=== PATIENT | female | born 1945 | race Caucasian/White ===

== ENCOUNTER 2021-01-15 19:27 | Inpatient (IN) | payer MEDICARE ==
[2021-01-15] MEDS ORDERED: Furosemide 100mg/10 ml Vial ONE (19:41)
[2021-01-15] MEDS ORDERED: NITRO-BID 2% UD PACKETS ONE (19:44)
[2021-01-15] MEDS ORDERED: Nitrostat 0.4 MG (ED) SL ONE ×2 (19:44→20:00)
[2021-01-15] MEDS ORDERED: solu-MEDROL ONE (19:45)
[2021-01-15] MEDS ORDERED: DUONEB 0.5-3 MG/3 ml Neb IH ONE ×2 (19:46→20:01)
[2021-01-15] MEDS ORDERED: Zofran 4 MG/2 ML VIAL ONE (19:47)
[2021-01-15] MEDS ORDERED: HYDROCODONE-ACETAMIN 2.5-108/5 ML SOLUTION ONE (19:57)
[2021-01-15] MEDS ORDERED: solu-MEDROL 125 MG, Sterile H2O 10 ml 2 ML IV ONE ×2 (19:59)
[2021-01-15] MEDS ORDERED: Ntg 0.2MG/Ml in D5W GLASS*** 250 ML IV ONE (20:00)
[2021-01-15] MEDS ORDERED: NITRO-BID 2% UD PACKETS TOP ONE (20:00)
[2021-01-15] MEDS ORDERED: Furosemide 100mg/10 ml Vial IV ONE (20:01)
[2021-01-15] MEDS ORDERED: Zofran 4 MG/2 ML VIAL IV ONE (20:02)
[2021-01-15] MEDS ORDERED: Lasix 40 MG/4 ML ONE (20:03)
[2021-01-15] MEDS ORDERED: HYDROCODONE-ACETAMIN 2.5-108/5 ML SOLUTION PO STA (20:14)
[2021-01-15 20:27] LABS: Hematocrit 54.1 % (35-47); Hemoglobin 17.4 gm/dl (12.0-16.0); Mean Corpuscular Hemoglobin 28.6 pg (26-32); Mean Corpuscular Hgb Concent. 32.2 g/dl (32-36); Mean Platelet Volume 10.5 fl (7.5-11.0); Platelet Count 351 K/mm3 (150-450); Red Blood Count 6.08 M/mm3 (4.1-5.4)
[2021-01-15 20:33] LABS: ALBUMIN 4.5 g/dL (3.5-5.0); ALKALINE PHOSPHATASE 198 U/L (38-126); ANION GAP 21.5 MEQ/L (5-15); BLOOD UREA NITROGEN 18 mg/dL (7-17); CHLORIDE 94 mmol/L (98-107); Calcium 9.6 mg/dL (8.4-10.2); Carbon Dioxide 22 mmol/L (22-30); Creatinine 1 0.76 mg/dL (0.52-1.04); EST GLOMERULAR FILTRATION RATE > 60.0 ML/MIN; Potassium 3.9 mmol/L (3.5-5.1); SGOT/AST 46 U/L (14-36); SGPT/ALT 21 U/L (0-35); SODIUM 134 mmol/L (137-145); Total Protein 8.4 g/dL (6.3-8.2)
[2021-01-15 20:35] LABS: A-aADO2 583; ABG HEMOGLOBIN 17.2; ABG POTASSIUM 3.7 (3.5-5.1); ARTERIAL BLD GAS O2 SATURATION 81.2 % (95-100); ARTERIAL BLOOD GAS BASE EXCESS -12.1 (-2.0-2.0); ARTERIAL BLOOD GAS FIO2 100 %; ARTERIAL BLOOD GAS PCO2 58 mmHg (35-45); ARTERIAL BLOOD GAS PO2 58 mmHg (75-100); CARBOXYHEMOGLOBIN 1.3 % THgb (0.0-6.9); HGB O2 SAT 79.7 g/dF (94-100); Lactic Acid 8.3 (0.4-2.0); Methhemoglobin 0.6 % (1.4-1.5)
[2021-01-15 20:36] LABS: ABG SITE LEFT BRACHIAL
[2021-01-15 20:46] LABS: Glucose 518 mg/dL (74-106)
[2021-01-15] MEDS ORDERED: Ntg 0.2MG/Ml in D5W GLASS*** 250 ML IV PRN (21:05)
[2021-01-15] MEDS ORDERED: BABY ASPIRIN 81 MG CHEW PO ONE (21:23)
[2021-01-15 21:25] LABS: Appearance CLEAR (CLEAR); Bilirubin NEGATIVE (NEGATIVE); Blood SMALL Ery/ul (0-5); Glucose >=500 mg/dL (NEGATIVE); Hyaline Casts 0-2 /LPF (0-2); Ketones NEGATIVE (NEGATIVE); Leukocyte Esterase NEGATIVE (NEGATIVE); Nitrite NEGATIVE (NEGATIVE); Protein,Urine Dip 30 (Negative); Specific Gravity 1.007 (1.005-1.025); Urobilinogen NEGATIVE mg/dL (0-1)
[2021-01-15] MEDS ORDERED: HUMULIN R IV ONE (21:25)
[2021-01-15] MEDS ORDERED: BABY ASPIRIN 81 MG CHEW ONE (21:25)
[2021-01-15] MEDS ORDERED: K-LYTE 25 MEQ PO ONE (21:26)
[2021-01-15] MEDS ORDERED: K-LYTE 25 MEQ ONE (21:35)
[2021-01-15] MEDS ORDERED: HUMULIN R ONE ×2 (21:35→21:49)
--- NOTE | 2021-01-15 21:42 | ERPHSYRPT ---
- History of Present Illness Time Seen by Provider: 01/15/21 19:29 Source: patient Exam Limitations: clinical condition Patient Subjective Stated Complaint: pt c/o shortness of breath and chest pain. poor historian at this time. states she was recently diagnosed with heart problems, unsure what kind, and sees dr rousseau. Triage Nursing Assessment: pt back to room per wheelchair, transfers to stretcher with assist of 1. pt very anxious, short of breath, yelling. unable to answer medical hx questions at this time. frequent cough with pink frothy sputum. skin dusky and diaphoretic. o2 on room air initially 100% and decreased to 68 before o2 applied per nrb. Physician History: 75 years old female with history of hypertension, hyperlipidemia, diabetes mellitus, questionable history of congestive heart failure presented in the ER with sudden onset shortness of breath after she heard about her granddaughter being involved in MVA. Patient is in severe distress on presentation with oxygen saturation in 60s and having difficulty talking. Complaining of chest tightness pressure and pain with worsening cough productive of clear to yellow sputum. Patient is having loud coarse crackles all over. No fever or chills reported. She is placed on nonrebreather followed by BiPAP. Timing/Duration: hour(s) (0.5), constant, sudden, worse Activities at Onset: rest Severity of Dyspnea-Max: severe Severity of Dyspnea-Current: severe Possible Cause: unknown cause Modifying Factors: Worsens With: activity, coughing, exertion Associated Symptoms: chest pain/discomfort, heart racing, productive cough, tightness, No fever Allergies/Adverse Reactions: fentanyl Allergy (Unknown, Verified 01/16/21 00:00) glycopyrrolate [From Robinul] Allergy (Unknown, Verified 01/16/21 00:00) lidocaine Allergy (Unknown, Verified 01/16/21 00:00) propofol Allergy (Unknown, Verified 01/16/21 00:00) rocuronium bromide [From Zemuron] Allergy (Unknown, Verified 01/16/21 00:00) Antihistamines - Alkylamine Adverse Reaction (Unknown, Verified 01/16/21 00:00) metoprolol Adverse Reaction (Unknown, Verified 01/16/21 00:00) Home Medications: Cholecalciferol (Vitamin D3) [Vitamin D] 0 mg PO DAILY 10/16/13 [History] Cyanocobalamin (Vitamin B-12) [Vitamin B-12] 0 mcg PO DAILY 10/16/13 [History] Insulin Glargine,Hum.rec.anlog [Lantus] 30 unit SQ BID 10/16/13 [History] Insulin Lispro [Humalog] 20 unit SQ BID 10/16/13 [History] Vitamin E 0 unit PO DAILY 10/16/13 [History] Carvedilol 3.125 mg [Coreg 3.125 MG] 3.125 mg PO BID 01/16/21 [History] Cinnamon Bark [Cinnamon] 1 tab PO QAM 01/16/21 [History] Furosemide [Lasix] 20 mg PO BID 01/16/21 [History] Losartan Potassium 25 mg PO DAILY 01/16/21 [History] Potassium Chloride 10 meq PO HS 01/16/21 [History] Vit A/Vit C/Vit E/Zinc/Copper [Preservision Areds Tablet] 2 tab PO QAM 01/16/21 [History] Hx Tetanus, Diphtheria Vaccination/Date Given: No Hx Influenza Vaccination/Date Given: No Hx Pneumococcal Vaccination/Date Given: Yes Immunizations Up to Date: No Travel Risk - International Travel Have you traveled outside of the country in past 3 weeks: No - Coronavirus Screening Are you exhibiting any of the following symptoms?: No Close contact with a COVID-19 positive Pt in past 14-21 Days: No - Vaccine Status Have you recieved a Covid-19 vaccination: No - Review of Systems All Other Systems: Unable due to condition - Past Medical History Pertinent Past Medical History: Yes Cardiac History: High Cholesterol, Other Endocrine Medical History: Diabetes Type II Other Medical History: breast cax2. pt unable to answer questions about medical hx at this time - Past Surgical History Past Surgical History: Yes Gastrointestinal: Cholecystectomy Musculoskeletal: Orthopedic Surgery Female Surgical History: Hysterectomy, Mastectomy Other Surgical History: surgical hx obtained from chart - Social History Smoking Status: Never smoker Exposure to second hand smoke: No Drug Use: none Patient Lives Alone: No - Nursing Vital Signs Nursing Vital Signs: Initial Vital Signs Blood Pressure 169/139 01/15/21 19:45 O2 Sat by Pulse Oximetry 89 L 01/15/21 19:45 Pain Scale Pain Intensity 0 - Physical Exam General Appearance: severe distress, alert, anxiety Eye Exam: PERRL/EOMI, eyes nml inspection Ears, Nose, Throat Exam: pharyngeal erythema Neck Exam: normal inspection, non-tender, supple, full range of motion Respiratory Exam: respiratory distress, diminished breath sounds, accessory muscle use, crackles/rales, rhonchi, wheezing Cardiovascular/Chest Exam: normal heart sounds, tachycardia Abdominal/Gastrointestinal Exam: soft, No tenderness Extremity Exam: non-tender, normal range of motion Neurologic Exam: alert, oriented x 3, 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 helper II-XII nml as tested Skin Exam: normal color SpO2 Interpretation: O2 applied SpO2: 94 O2 Delivery: Non-rebreather - Course EKG Interpreted by Me: RATE ([id number]), Sinus Tach, NORMAL AXIS, prolonged QT interval, Non-specific ST Changes Ordered Tests: Medication Summary Discontinued Medications Generic Name Dose Route Start Last Admin Trade Name Freq PRN Reason Stop Dose Admin Acetaminophen 650 mg 01/16/21 00:26 Acetaminophen 325 Mg Tablet PO 02/15/21 00:25 Q4H PRN PRN PAIN AND/OR FEVER Hydrocodone Bitart/Acetaminophen Confirm 01/15/21 19:57 Hydrocodone/Acetaminophen 5 Ml Udcup Administered 01/15/21 19:58 Dose 10 ml .ROUTE .STK-MED ONE Hydrocodone Bitart/Acetaminophen 10 ml 01/15/21 20:14 01/15/21 20:16 Hydrocodone/Acetaminophen 5 Ml Udcup PO 01/15/21 20:15 10 ml STAT STA Administration Albuterol/Ipratropium Confirm 01/15/21 19:46 Ipratropium/Albuterol Sulfate 3 Ml Ampul.Neb Administered 01/15/21 19:47 Dose 3 ml IH .STK-MED ONE Albuterol/Ipratropium 3 ml 01/15/21 20:01 01/15/21 19:45 Ipratropium/Albuterol Sulfate 3 Ml Ampul.Neb IH 01/15/21 20:02 3 ml STAT ONE Administration Albuterol/Ipratropium 3 ml 01/16/21 01:00 01/16/21 12:03 Ipratropium/Albuterol Sulfate 3 Ml Ampul.Neb IH 02/15/21 00:59 3 ml Q6HRT MADAY Administration Aspirin 324 mg 01/15/21 21:23 01/15/21 21:32 Aspirin 81 Mg Tab.Chew PO 01/15/21 21:24 324 mg STAT ONE Administration Aspirin Confirm 01/15/21 21:25 Aspirin 81 Mg Tab.Chew Administered 01/15/21 21:26 Dose 324 mg .ROUTE .STK-MED ONE Carvedilol 3.125 mg 01/16/21 12:00 01/16/21 12:40 Carvedilol 3.125 Mg Tablet PO 02/15/21 11:59 3.125 mg BID MADAY Administration Methylprednisolone Sodium 0 mg 01/15/21 19:59 01/15/21 19:50 Succinate 125 mg/ Sterile IV 01/15/21 20:00 125 mg Water 2 ml STAT ONE Administration Dextrose 25 ml 01/16/21 09:06 Dextrose 50%-Water 50 Ml Abboject IV 02/15/21 09:05 PRN PRN HYPOGLYCEMIA Enoxaparin Sodium 40 mg 01/16/21 10:00 01/16/21 12:38 Enoxaparin Sodium 40 Mg/0.4 Ml Syringe SQ 02/15/21 09:59 40 mg DAILY MADAY Administration Furosemide Confirm 01/15/21 19:41 Furosemide 100 Mg/10 Ml Vial Administered 01/15/21 19:42 Dose 100 mg .ROUTE .STK-MED ONE Furosemide 60 mg 01/15/21 20:01 01/15/21 19:50 Furosemide 100 Mg/10 Ml Vial IV 01/15/21 20:02 60 mg STAT ONE Administration Furosemide Confirm 01/15/21 20:03 Furosemide 40 Mg/4 Ml Vial Administered 01/15/21 20:04 Dose 40 mg .ROUTE .STK-MED ONE Furosemide 20 mg 01/16/21 21:05 01/15/21 21:27 Furosemide 20 Mg/Vial IV 01/16/21 21:06 20 mg STAT ONE Administration Glucagon 1 mg 01/16/21 09:06 Glucagon 1 Mg/Vial Vial IM 02/15/21 09:05 PRN PRN HYPOGLYCEMIA Glucose 15 gm 01/16/21 09:06 Dextrose 15 Gm Gel PO 02/15/21 09:05 PRN PRN HYPOGLYCEMIA Nitroglycerin/Dextrose Confirm 01/15/21 20:00 Ntg 0.2mg/Ml In D5w Glass Administered 01/15/21 20:01 Dose 250 mls @ ud IV .STK-MED ONE Nitroglycerin/Dextrose 250 mls @ 1.5 mls/hr 01/15/21 21:05 01/16/21 04:06 Ntg 0.2mg/Ml In D5w Glass IV 02/14/21 21:04 16.67 mcg/min .Q24H PRN 5 mls/hr CHEST PAIN Titration Protocol 5 MCG/MIN Magnesium Sulfate/Dextrose 100 mls @ 100 mls/hr 01/15/21 21:45 01/15/21 22:43 Magnesium 1 Gm / 100 Ml D5w IV 01/15/21 23:44 100 mls/hr Q1H MADAY Administration Sodium Chloride Confirm 01/15/21 21:49 Sodium Chloride 0.9% 100 Ml Bag Administered 01/15/21 21:50 Dose 100 mls @ ud .ROUTE .STK-MED ONE Insulin Human Regular 100 unit 100 mls @ 7.98 mls/hr 01/15/21 21:59 / Sodium Chloride IV 02/14/21 21:58 .[id number] PRN DKA/HYPERGLYCEMIA Protocol 0.1 UNIT/KG/HR Insulin Human Regular 100 unit 100 mls @ 5 mls/hr 01/15/21 22:02 01/16/21 08:19 / Sodium Chloride IV 02/14/21 21:58 5 unit/hr .Q20H PRN 5 mls/hr DKA/HYPERGLYCEMIA Infusion 5 UNIT/HR Potassium Chloride/Sodium Chloride 1,000 mls @ 100 mls/hr 01/16/21 00:26 Sodium Chloride 0.9% W/ 20 Meq Kcl/Liter IV 02/15/21 00:25 .Q10H MADAY Insulin Human Lispro 0 unit 01/16/21 10:27 01/16/21 17:42 Insulin Lispro 1 Unit SQ 02/15/21 10:26 7 unit UD PRN Administration HYPERGLYCEMIA Insulin Human Regular 10 unit 01/15/21 21:25 01/15/21 21:36 Insulin Regular, Human 1 Unit IV 01/15/21 21:26 10 unit STAT ONE Administration Insulin Human Regular Confirm 01/15/21 21:35 Insulin Regular, Human 1 Unit Administered 01/15/21 21:36 Dose 10 unit .ROUTE .STK-MED ONE Insulin Human Regular Confirm 01/15/21 21:49 Insulin Regular, Human 1 Unit Administered 01/15/21 21:50 Dose 1 unit .ROUTE .STK-MED ONE Losartan Potassium 25 mg 01/16/21 12:00 01/16/21 12:40 Losartan Potassium 50 Mg Tablet PO 02/15/21 11:59 Not Given DAILY MADAY Methylprednisolone Sodium Succinate Confirm 01/15/21 19:45 Methylprednis Sod Succ 125 Mg/2 Ml Vial Administered 01/15/21 19:46 Dose 125 mg .ROUTE .STK-MED ONE Multivitamins/Minerals 2 tab 01/16/21 12:00 01/16/21 12:40 Beta-Carotene(A) W-C And E/Min 1 Tab Tablet PO 02/15/21 11:59 2 tab QAM MADAY Administration Nitroglycerin Confirm 01/15/21 19:44 Nitroglycerin 1 Gm Packet Administered 01/15/21 19:45 Dose 1 gm .ROUTE .STK-MED ONE Nitroglycerin Confirm 01/15/21 19:44 Nitroglycerin 0.4 Mg (Ed) 0.4 Mg Tab.Subl Administered 01/15/21 19:45 Dose 0.4 mg SL .STK-MED ONE Nitroglycerin 0.4 mg 01/15/21 20:00 01/15/21 19:49 Nitroglycerin 0.4 Mg (Ed) 0.4 Mg Tab.Subl SL 01/15/21 20:01 0.4 mg STAT ONE Administration Nitroglycerin 1 gm 01/15/21 20:00 01/15/21 19:55 Nitroglycerin 1 Gm Packet TOP 01/15/21 20:01 1 gm STAT ONE Administration Ondansetron HCl Confirm 01/15/21 19:47 Ondansetron Hcl 4 Mg/2 Ml Vial Administered 01/15/21 19:48 Dose 4 mg .ROUTE .STK-MED ONE Ondansetron HCl 4 mg 01/15/21 20:02 01/15/21 19:50 Ondansetron Hcl 4 Mg/2 Ml Vial IV 01/15/21 20:03 4 mg STAT ONE Administration Pantoprazole Sodium 40 mg 01/16/21 10:00 01/16/21 11:32 Pantoprazole 40 Mg Vial IV 02/15/21 09:59 40 mg Q24H10 MADAY Administration Potassium Bicarbonate 50 meq 01/15/21 21:26 01/15/21 21:37 Potassium Bicarbonate 25 Meq Tab PO 01/15/21 21:27 50 meq STAT ONE Administration Potassium Bicarbonate Confirm 01/15/21 21:35 Potassium Bicarbonate 25 Meq Tab Administered 01/15/21 21:36 Dose 50 meq .ROUTE .STK-MED ONE Potassium Chloride 10 meq 01/16/21 22:00 Potassium Chloride 10 Meq Tablet PO 02/15/21 21:59 HS [facility] Lab/Rad Data: Laboratory Result Diagrams 01/15/21 20:23 01/15/21 20:23 Laboratory Results 01/16/21 01/15/21 01/15/21 Range/Units 00:09 23:40 23:37 WBC (4.0-10.5) K/mm3 RBC (4.1-5.4) M/mm3 Hgb (12.0-16.0) gm/dl Hct (35-47) % MCV (78-100) fl MCH (26-32) pg MCHC (32-36) g/dl RDW (11.5-14.0) % Plt Count (150-450) K/mm3 MPV (7.5-11.0) fl Segmented Neutrophils (36.0-66.0) % Lymphocytes (Manual) (24-44) % Monocytes (Manual) (0.0-12.0) % Eosinophils (Manual) (0.00-3.0) % Platelet Estimate (NORMAL) RBC Morphology Puncture Site pCO2 (35-45) mmHg pO2 (75-100) mmHg Base Excess (-2.0-2.0) O2 Saturation (94-100) g/dF ABG pH (7.35-7.45) ABG HCO3 (22-28) ABG O2 Sat (Measured) (95-100) % Deondre Test A-a Gradient a/A Ratio Hemoglobin Carboxyhemoglobin (0.0-6.9) % THgb Methemoglobin (1.4-1.5) % Potassium (3.5-5.1) Temperature C POC O2 Flow Rate % Sodium (137-145) mmol/L Chloride (98-107) mmol/L Carbon Dioxide (22-30) mmol/L Anion Gap (5-15) MEQ/L BUN (7-17) mg/dL Creatinine (0.52-1.04) mg/dL Estimated GFR ML/MIN Glucose (74-106) mg/dL POC Glucometer 360 H (74 to 106) mg/dL Lactic Acid 3.6 H (0.4-2.0) Calcium (8.4-10.2) mg/dL Total Bilirubin (0.2-1.3) mg/dL AST (14-36) U/L ALT (0-35) U/L Alkaline Phosphatase (38-126) U/L Troponin I 0.404 H* (0.000-0.034) ng/mL NT-Pro-B Natriuret Pep (0-1800) pg/mL Serum Total Protein (6.3-8.2) g/dL Albumin (3.5-5.0) g/dL Procalcitonin (0.030-0.080) ng/mL Urine Color (YELLOW) Urine Appearance (CLEAR) Urine pH (5-6) Ur Specific [place] (1.005-1.025) Urine Protein (Negative) Urine Ketones (NEGATIVE) Urine Blood (0-5) Ashish/ul Urine Nitrite (NEGATIVE) Urine Bilirubin (NEGATIVE) Urine Urobilinogen (0-1) mg/dL Ur Leukocyte Esterase (NEGATIVE) Urine WBC (Auto) (0-5) /HPF Urine RBC (Auto) (0-2) /HPF U Hyaline Cast (Auto) (0-2) /LPF U Epithel Cells (Auto) (FEW) /HPF Urine Bacteria (Auto) (NEGATIVE) /HPF Urine Culture Reflexed (NO) Urine Glucose (NEGATIVE) mg/dL Influenza Type A Ag (NEGATIVE) Influenza Type B Ag (NEGATIVE) RSV (PCR) (Negative) SARS-CoV-2 (PCR) (NEGATIVE) 01/15/21 01/15/21 01/15/21 Range/Units 22:42 22:25 20:47 WBC (4.0-10.5) K/mm3 RBC (4.1-5.4) M/mm3 Hgb (12.0-16.0) gm/dl Hct (35-47) % MCV (78-100) fl MCH (26-32) pg MCHC (32-36) g/dl RDW (11.5-14.0) % Plt Count (150-450) K/mm3 MPV (7.5-11.0) fl Segmented Neutrophils (36.0-66.0) % Lymphocytes (Manual) (24-44) % Monocytes (Manual) (0.0-12.0) % Eosinophils (Manual) (0.00-3.0) % Platelet Estimate (NORMAL) RBC Morphology Puncture Site pCO2 (35-45) mmHg pO2 (75-100) mmHg Base Excess (-2.0-2.0) O2 Saturation (94-100) g/dF ABG pH (7.35-7.45) ABG HCO3 (22-28) ABG O2 Sat (Measured) (95-100) % Deondre Test A-a Gradient a/A Ratio Hemoglobin Carboxyhemoglobin (0.0-6.9) % THgb Methemoglobin (1.4-1.5) % Potassium (3.5-5.1) Temperature C POC O2 Flow Rate % Sodium (137-145) mmol/L Chloride (98-107) mmol/L Carbon Dioxide (22-30) mmol/L Anion Gap (5-15) MEQ/L BUN (7-17) mg/dL Creatinine (0.52-1.04) mg/dL Estimated GFR ML/MIN Glucose (74-106) mg/dL POC Glucometer 496 H (74 to 106) mg/dL Lactic Acid (0.4-2.0) Calcium (8.4-10.2) mg/dL Total Bilirubin (0.2-1.3) mg/dL AST (14-36) U/L ALT (0-35) U/L Alkaline Phosphatase (38-126) U/L Troponin I (0.000-0.034) ng/mL NT-Pro-B Natriuret Pep (0-1800) pg/mL Serum Total Protein (6.3-8.2) g/dL Albumin (3.5-5.0) g/dL Procalcitonin (0.030-0.080) ng/mL Urine Color STRAW (YELLOW) Urine Appearance CLEAR (CLEAR) Urine pH 5.0 (5-6) Ur Specific [place] 1.007 (1.005-1.025) Urine Protein 30 (Negative) Urine Ketones NEGATIVE (NEGATIVE) Urine Blood SMALL (0-5) Ashish/ul Urine Nitrite NEGATIVE (NEGATIVE) Urine Bilirubin NEGATIVE (NEGATIVE) Urine Urobilinogen NEGATIVE (0-1) mg/dL Ur Leukocyte Esterase NEGATIVE (NEGATIVE) Urine WBC (Auto) NONE (0-5) /HPF Urine RBC (Auto) 3-5 (0-2) /HPF U Hyaline Cast (Auto) 0-2 (0-2) /LPF U Epithel Cells (Auto) NONE (FEW) /HPF Urine Bacteria (Auto) NONE (NEGATIVE) /HPF Urine Culture Reflexed ORDERED SEPARATELY (NO) Urine Glucose >=500 (NEGATIVE) mg/dL Influenza Type A Ag NEGATIVE (NEGATIVE) Influenza Type B Ag NEGATIVE (NEGATIVE) RSV (PCR) NEGATIVE (Negative) SARS-CoV-2 (PCR) NEGATIVE (NEGATIVE) 01/15/21 01/15/21 01/15/21 Range/Units 20:23 20:23 20:23 WBC (4.0-10.5) K/mm3 RBC (4.1-5.4) M/mm3 Hgb (12.0-16.0) gm/dl Hct (35-47) % MCV (78-100) fl MCH (26-32) pg MCHC (32-36) g/dl RDW (11.5-14.0) % Plt Count (150-450) K/mm3 MPV (7.5-11.0) fl Segmented Neutrophils (36.0-66.0) % Lymphocytes (Manual) (24-44) % Monocytes (Manual) (0.0-12.0) % Eosinophils (Manual) (0.00-3.0) % Platelet Estimate (NORMAL) RBC Morphology Puncture Site pCO2 (35-45) mmHg pO2 (75-100) mmHg Base Excess (-2.0-2.0) O2 Saturation (94-100) g/dF ABG pH (7.35-7.45) ABG HCO3 (22-28) ABG O2 Sat (Measured) (95-100) % Deondre Test A-a Gradient a/A Ratio Hemoglobin Carboxyhemoglobin (0.0-6.9) % THgb Methemoglobin (1.4-1.5) % Potassium (3.5-5.1) Temperature C POC O2 Flow Rate % Sodium (137-145) mmol/L Chloride (98-107) mmol/L Carbon Dioxide (22-30) mmol/L Anion Gap (5-15) MEQ/L BUN (7-17) mg/dL Creatinine (0.52-1.04) mg/dL Estimated GFR ML/MIN Glucose (74-106) mg/dL POC Glucometer (74 to 106) mg/dL Lactic Acid (0.4-2.0) Calcium (8.4-10.2) mg/dL Total Bilirubin (0.2-1.3) mg/dL AST (14-36) U/L ALT (0-35) U/L Alkaline Phosphatase (38-126) U/L Troponin I 0.104 H* (0.000-0.034) ng/mL NT-Pro-B Natriuret Pep 1610 (0-1800) pg/mL Serum Total Protein (6.3-8.2) g/dL Albumin (3.5-5.0) g/dL Procalcitonin 0.060 (0.030-0.080) ng/mL Urine Color (YELLOW) Urine Appearance (CLEAR) Urine pH (5-6) Ur Specific [place] (1.005-1.025) Urine Protein (Negative) Urine Ketones (NEGATIVE) Urine Blood (0-5) Ashish/ul Urine Nitrite (NEGATIVE) Urine Bilirubin (NEGATIVE) Urine Urobilinogen (0-1) mg/dL Ur Leukocyte Esterase (NEGATIVE) Urine WBC (Auto) (0-5) /HPF Urine RBC (Auto) (0-2) /HPF U Hyaline Cast (Auto) (0-2) /LPF U Epithel Cells (Auto) (FEW) /HPF Urine Bacteria (Auto) (NEGATIVE) /HPF Urine Culture Reflexed (NO) Urine Glucose (NEGATIVE) mg/dL Influenza Type A Ag (NEGATIVE) Influenza Type B Ag (NEGATIVE) RSV (PCR) (Negative) SARS-CoV-2 (PCR) (NEGATIVE) 01/15/21 01/15/21 01/15/21 Range/Units 20:23 20:23 20:11 WBC 14.0 H (4.0-10.5) K/mm3 RBC 6.08 H (4.1-5.4) M/mm3 Hgb 17.4 H (12.0-16.0) gm/dl Hct 54.1 H (35-47) % MCV 89.0 (78-100) fl MCH 28.6 (26-32) pg MCHC 32.2 (32-36) g/dl RDW 13.0 (11.5-14.0) % Plt Count 351 (150-450) K/mm3 MPV 10.5 (7.5-11.0) fl Segmented Neutrophils 43 (36.0-66.0) % Lymphocytes (Manual) 53 H (24-44) % Monocytes (Manual) 1 (0.0-12.0) % Eosinophils (Manual) 3 (0.00-3.0) % Platelet Estimate NORMAL (NORMAL) RBC Morphology NORMAL Puncture Site LEFT BRACHIAL pCO2 58 H (35-45) mmHg pO2 58 L (75-100) mmHg Base Excess -12.1 L (-2.0-2.0) O2 Saturation 79.7 L (94-100) g/dF ABG pH 7.10 L* (7.35-7.45) ABG HCO3 18.0 L (22-28) ABG O2 Sat (Measured) 81.2 L (95-100) % Deondre Test NOT APPLICABLE A-a Gradient 583 a/A Ratio 0.09 Hemoglobin 17.2 Carboxyhemoglobin 1.3 (0.0-6.9) % THgb Methemoglobin 0.6 L (1.4-1.5) % Potassium 3.9 3.7 (3.5-5.1) Temperature 37.0 C POC O2 Flow Rate 100 % Sodium 134 L (137-145) mmol/L Chloride 94 L (98-107) mmol/L Carbon Dioxide 22 (22-30) mmol/L Anion Gap 21.5 H (5-15) MEQ/L BUN 18 H (7-17) mg/dL Creatinine 0.76 (0.52-1.04) mg/dL Estimated GFR > 60.0 ML/MIN Glucose 518 H* (74-106) mg/dL POC Glucometer (74 to 106) mg/dL Lactic Acid 8.3 H (0.4-2.0) Calcium 9.6 (8.4-10.2) mg/dL Total Bilirubin 0.60 (0.2-1.3) mg/dL AST 46 H (14-36) U/L ALT 21 (0-35) U/L Alkaline Phosphatase 198 H (38-126) U/L Troponin I (0.000-0.034) ng/mL NT-Pro-B Natriuret Pep (0-1800) pg/mL Serum Total Protein 8.4 H (6.3-8.2) g/dL Albumin 4.5 (3.5-5.0) g/dL Procalcitonin (0.030-0.080) ng/mL Urine Color (YELLOW) Urine Appearance (CLEAR) Urine pH (5-6) Ur Specific [place] (1.005-1.025) Urine Protein (Negative) Urine Ketones (NEGATIVE) Urine Blood (0-5) Ashish/ul Urine Nitrite (NEGATIVE) Urine Bilirubin (NEGATIVE) Urine Urobilinogen (0-1) mg/dL Ur Leukocyte Esterase (NEGATIVE) Urine WBC (Auto) (0-5) /HPF Urine RBC (Auto) (0-2) /HPF U Hyaline Cast (Auto) (0-2) /LPF U Epithel Cells (Auto) (FEW) /HPF Urine Bacteria (Auto) (NEGATIVE) /HPF Urine Culture Reflexed (NO) Urine Glucose (NEGATIVE) mg/dL Influenza Type A Ag (NEGATIVE) Influenza Type B Ag (NEGATIVE) RSV (PCR) (Negative) SARS-CoV-2 (PCR) (NEGATIVE) - Progress Progress: improved Air Movement: fair Progress Note: 01/15/21 21:37 35 years old is evaluated for severe respiratory distress sudden onset. Patient has loud audible crackles all over. Given IV 80 mg Lasix, sublingual nitro x2 and Nitropaste along with DuoNeb and Solu-Medrol and placed on nonrebreather which helped her work of breathing. Feeling much better on reevaluation. She is also started on nitro drip. EKG showed sinus tach without any obvious ST elevations but does have elevated troponin of 0.1 which I believe is secondary to CHF exacerbation/respiratory failure driven. ABG showed pH of 7.1 with oxygen and CO2 in the 50s. Patient was not tolerating BiPAP very well and started on high flow as she is DNR. Work-up showed white count of 14 and blood glucose in 500 with mildly low bicarb. Given IV insulin and will continue with drip with her low pH, elevated gap and will treat her as a DKA. Blood Culture(s) Obtained: Yes Discussed with : Senait Will see patient in: hospital (full admit) Counseled pt/family regarding: lab results, diagnosis, rad results - Departure Departure Disposition: In-patient Admission Clinical Impression: CHF exacerbation, DKA (diabetic ketoacidosis) Respiratory failure Qualifiers: Chronicity: acute Respiratory failure complication: hypoxia and hypercapnia Qualified Code(s): J96.01 - Acute respiratory failure with hypoxia Condition: Stable Critical Care Time: Yes Critical Care Time(excluding separately billable procedures): Critical 30-74 mins
[2021-01-15] MEDS ORDERED: Sodium Chloride 0.9% 100 ML BAG 100 ML ONE (21:49)
[2021-01-15] MEDS: Magnesium 1 Gm / 100 Ml D5W*** 100 ML IV SCH ×2 (21:58→22:43)
[2021-01-15] MEDS ORDERED: HUMULIN R 100 UNIT in Sodium Chloride 0.9% 100 ML BAG 100 ML IV PRN (21:59)
[2021-01-15] MEDS: HUMULIN R 100 UNIT in Sodium Chloride 0.9% 100 ML BAG 100 ML IV PRN (22:04)
[2021-01-15] MEDS ORDERED: MORPHINE SULFATE 4 MG INJ ONE (22:12)
--- NOTE | 2021-01-15 23:08 | XRAY ---
Indication: Short of breath. Comparison: December 22, 2020 Portable demonstrates new markedly diffuse bilateral airspace disease/pulmonary edema. Small bibasilar effusions, improved in the interim. Heart not enlarged.. Comment: Preliminary interpretation made by [facility]. No critical discrepancy.
[2021-01-15 23:20] LABS: INFLUENZA A NEGATIVE (NEGATIVE); INFLUENZA B NEGATIVE (NEGATIVE); RESPIRATORY SYNCTIAL VIRUS NEGATIVE (Negative); SARS-CoV-2 Xpert Express NEGATIVE (NEGATIVE)
[2021-01-16] MEDS ORDERED: Sodium Chloride 0.9% W/ 20 mEq KCl/LITER 1,000 ML IV SCH (00:26)
[2021-01-16] MEDS ORDERED: TYLENOL 325 MG PO PRN (00:26)
[2021-01-16] MEDS: DUONEB 0.5-3 MG/3 ml Neb IH SCH ×3 (01:22→12:03)
[2021-01-16 01:38] LABS: A-aADO2 397; ABG HEMOGLOBIN 16.4; ABG POTASSIUM 4.4 (3.5-5.1); ABG SITE LEFT BRACHIAL; ARTERIAL BLD GAS O2 SATURATION 91.8 % (95-100); ARTERIAL BLOOD GAS BASE EXCESS 1.4 (-2.0-2.0); ARTERIAL BLOOD GAS FIO2 70 %; ARTERIAL BLOOD GAS PCO2 35 mmHg (35-45); ARTERIAL BLOOD GAS PO2 58 mmHg (75-100); ARTERIAL BLOOD GAS pH 7.46 (7.35-7.45); CARBOXYHEMOGLOBIN 2.1 % THgb (0.0-6.9); HCO3- 24.9 (22-28)
[2021-01-16 02:04] LABS: Eosinophil 3 % (0.00-3.0); Lymphocytes 53 % (24-44); Monocyte 1 % (0.0-12.0); Neutrophils 43 % (36.0-66.0); Platelet Estimate NORMAL (NORMAL); Total Cells Counted 100
[2021-01-16 02:29] LABS: ANION GAP 16.2 MEQ/L (5-15); BLOOD UREA NITROGEN 19 mg/dL (7-17); CHLORIDE 100 mmol/L (98-107); Calcium 9.4 mg/dL (8.4-10.2); Carbon Dioxide 20 mmol/L (22-30); Creatinine 1 0.74 mg/dL (0.52-1.04); EST GLOMERULAR FILTRATION RATE > 60.0 ML/MIN; Glucose 424 mg/dL (74-106); Potassium 4.1 mmol/L (3.5-5.1); SODIUM 132 mmol/L (137-145)
[2021-01-16 06:43] LABS: BASOPHIL % 0.2 % (0.0-0.4); Basophil (Absolute #) 0.02 (0-0.4); Eosinophil (Absolute #) 0 (0-0.5); Hemoglobin 14.9 gm/dl (12.0-16.0); Lymphocyte (Absolute #) 0.99 (1.0-4.6); Lymphocytes % 8.2 % (24.0-44.0); Mean Corpuscular Hemoglobin 28.2 pg (26-32); Mean Corpuscular Hgb Concent. 32.4 g/dl (32-36); Mean Platelet Volume 9.3 fl (7.5-11.0); Monocyte (Absolute #) 0.23 (0.0-1.3); Monocytes % 1.9 % (0.0-12.0); Neutrophil % 89.7 % (36.0-66.0); Platelet Count 285 K/mm3 (150-450); Red Blood Count 5.29 M/mm3 (4.1-5.4); Red Cell Distribution Width 12.7 % (11.5-14.0); White Blood Count 12.1 K/mm3 (4.0-10.5)
[2021-01-16 07:15] LABS: ALBUMIN 3.7 g/dL (3.5-5.0); ALKALINE PHOSPHATASE 111 U/L (38-126); ANION GAP 14.9 MEQ/L (5-15); BLOOD UREA NITROGEN 23 mg/dL (7-17); CHLORIDE 102 mmol/L (98-107); Calcium 9.5 mg/dL (8.4-10.2); Carbon Dioxide 24 mmol/L (22-30); Creatinine 1 0.74 mg/dL (0.52-1.04); EST GLOMERULAR FILTRATION RATE > 60.0 ML/MIN; Glucose 218 mg/dL (74-106); Potassium 4.1 mmol/L (3.5-5.1); SGOT/AST 27 U/L (14-36); SGPT/ALT 20 U/L (0-35); SODIUM 137 mmol/L (137-145); Total Protein 6.9 g/dL (6.3-8.2)
[2021-01-16] MEDS: HUMULIN R 100 UNIT in Sodium Chloride 0.9% 100 ML BAG 100 ML IV PRN (07:26)
--- NOTE | 2021-01-16 08:51 | PCM.HP ---
History of Present Illness - Chief Complaint Chief Complaint: shortness of breath for 4 hours History of Present Illness: is a 75 year old female.with history of hypertension, hyperlipidemia, diabetes mellitus, questionable history of congestive heart failure presented in the ER with sudden onset shortness of breath after she heard about her granddaughter being involved in MVA. Patient is in severe distress on presentation with oxygen saturation in 60s and having difficulty talking. Complaining of chest tightness pressure and pain with worsening cough productive of clear to yellow sputum. Patient is having loud coarse crackles all over. No fever or chills reported. She is placed on nonrebreather followed by BiPAP. - Review of Systems Constitutional: Weakness, No Fever, No Chills Eyes: No Symptoms Ears, Nose, & Throat: No Symptoms Respiratory: Short Of Breath, No Cough Cardiac: Chest Pain, No Edema, No Syncope Abdominal/Gastrointestinal: No Abdominal Pain, No Nausea, No Vomiting, No Diarrhea Genitourinary Symptoms: No Dysuria Musculoskeletal: No Back Pain, No Neck Pain Skin: No Rash Neurological: No Dizziness, No Focal Weakness, No Sensory Changes Psychological: No Symptoms Endocrine: No Symptoms Hematologic/Lymphatic: No Symptoms Immunological/Allergic: No Symptoms Medications & Allergies Home Medications: Home Medication List Cholecalciferol (Vitamin D3) [Vitamin D] 0 mg PO DAILY 10/16/13 [History Confirmed 01/16/21] Cyanocobalamin (Vitamin B-12) [Vitamin B-12] 0 mcg PO DAILY 10/16/13 [History Confirmed 01/16/21] Insulin Glargine,Hum.rec.anlog [Lantus] 30 unit SQ BID 10/16/13 [History Confirmed 01/16/21] Insulin Lispro [Humalog] 20 unit SQ BID 10/16/13 [History Confirmed 01/16/21] Vitamin E 0 unit PO DAILY 10/16/13 [History Confirmed 01/16/21] Carvedilol 3.125 mg [Coreg 3.125 MG] 3.125 mg PO BID 01/16/21 [History Confirmed 01/16/21] Cinnamon Bark [Cinnamon] 1 tab PO QAM 01/16/21 [History Confirmed 01/16/21] Furosemide [Lasix] 20 mg PO BID 01/16/21 [History Confirmed 01/16/21] Losartan Potassium 25 mg PO DAILY 01/16/21 [History Confirmed 01/16/21] Potassium Chloride 10 meq PO HS 01/16/21 [History Confirmed 01/16/21] Vit A/Vit C/Vit E/Zinc/Copper [Preservision Areds Tablet] 2 tab PO QAM 01/16/21 [History Confirmed 01/16/21] Allergies/Adverse Reactions: Allergies Allergy/AdvReac Type Severity Reaction Status Date / Time fentanyl Allergy Unknown Verified 01/16/21 00:00 glycopyrrolate [From Robinul] Allergy Unknown Verified 01/16/21 00:00 lidocaine Allergy Unknown Verified 01/16/21 00:00 propofol Allergy Unknown Verified 01/16/21 00:00 rocuronium bromide Allergy Unknown Verified 01/16/21 00:00 [From Zemuron] Antihistamines - Alkylamine AdvReac Unknown Verified 01/16/21 00:00 metoprolol AdvReac Unknown Verified 01/16/21 00:00 - Past Medical History Past Medical History: Yes Neurological History: No Pertinent History ENT History: Cataracts Cardiac History: High Cholesterol, Hypertension, Other Respiratory History: No Pertinent History Endocrine Medical History: Diabetes Type II Musculoskelatal History: Arthritis GI Medical History: No Pertinent History History: No Pertinent History Pyscho-Social History: No Pertinent History Reproductive Disorders: Breast Cancer Comment: breast cax2 - Female History Are you now?: No - Past Surgical History Past Surgical History: Yes Cardiac History: No Pertinent History GI Surgical History: Cholecystectomy Genitourinary Surgical Hx: No Pertinent History Musculskeletal Surgical Hx: No Pertinent History Female Surgical History: Hysterectomy, Mastectomy Other Surgical History: surgical hx obtained from chart - Social History Smoking Status: Never smoker Exposure to second hand smoke: No Alcohol: None Drug Use: none - Physical Exam Vital Signs: Vital Signs - 24 hr Temp Pulse Resp BP BP Pulse Ox 01/16/21 08:00 97.7 F 108 H 27 H 103/69 94 L 01/16/21 06:20 103 H 24 96 01/16/21 04:06 110 H 111/77 01/16/21 04:00 98.7 F 93 H 23 101/71 93 L 01/16/21 01:30 89 20 97 01/16/21 01:28 98.8 F 108 H 26 H 124/85 95 01/15/21 23:36 99.1 F 94 H 28 H 113/75 94 L 01/15/21 22:46 99.1 F 108 H 30 H 138/84 95 01/15/21 22:13 99.1 F 115 H 30 H 118/87 97 01/15/21 21:44 99.1 F 109 H 30 H 111/74 98 01/15/21 21:43 94 L 01/15/21 21:15 99.7 F 112 H 34 H 91/60 94 L 01/15/21 21:05 117 H 34 H 95/68 92 L 01/15/21 21:02 108 H 102/67 01/15/21 21:00 120 H 35 H 100/73 97 01/15/21 20:43 99.5 F 117 H 36 H 102/61 98 01/15/21 20:38 119 H 39 H 107/80 97 01/15/21 20:34 40 H 84 L 01/15/21 20:30 44 H 109/70 95 01/15/21 20:29 121 H 35 H 111/72 95 01/15/21 20:24 124 H 40 H 121/86 96 01/15/21 20:20 130 H 43 H 145/97 97 01/15/21 20:15 137 H 40 H 83 L 01/15/21 20:14 137 H 44 H 155/96 84 L 01/15/21 20:11 139 H 40 H 124/103 80 L 01/15/21 20:02 143 H 36 H 167/106 167/106 82 L 01/15/21 19:45 169/139 89 L General Appearance: moderate distress, alert, lethargy Neurologic Exam: alert, sensation nml, confusion, No motor deficits Eye Exam: PERRL/EOMI, eyes nml inspection Ears, Nose, Throat Exam: normal ENT inspection, TMs normal, pharynx normal, moist mucous membranes Neck Exam: normal inspection, non-tender, supple, full range of motion Respiratory Exam: normal breath sounds, lungs clear, No respiratory distress Cardiovascular Exam: regular rate/rhythm, normal heart sounds, normal peripheral pulses Gastrointestinal/Abdomen Exam: soft, normal bowel sounds, No tenderness, No mass Back Exam: normal inspection, normal range of motion, No CVA tenderness, No diaz tebral tenderness Extremity Exam: normal inspection, normal range of motion, pelvis stable Skin Exam: normal color, warm, dry, No rash Lymphatic Exam: No adenopathy Results - Labs Lab/Micro Results: Lab Results-Last 24 Hours 01/15/21 01/15/21 01/15/21 Range/Units 20:11 20:23 20:23 WBC 14.0 H (4.0-10.5) K/mm3 RBC 6.08 H (4.1-5.4) M/mm3 Hgb 17.4 H (12.0-16.0) gm/dl Hct 54.1 H (35-47) % MCV 89.0 (78-100) fl MCH 28.6 (26-32) pg MCHC 32.2 (32-36) g/dl RDW 13.0 (11.5-14.0) % Plt Count 351 (150-450) K/mm3 MPV 10.5 (7.5-11.0) fl Gran % (36.0-66.0) % Eos # (Auto) (0-0.5) Absolute Lymphs (auto) (1.0-4.6) Absolute Monos (auto) (0.0-1.3) Lymphocytes % (24.0-44.0) % Monocytes % (0.0-12.0) % Eosinophils % (0.00-5.0) % Basophils % (0.0-0.4) % Absolute Granulocytes (1.4-6.9) Segmented Neutrophils 43 (36.0-66.0) % Lymphocytes (Manual) 53 H (24-44) % Monocytes (Manual) 1 (0.0-12.0) % Eosinophils (Manual) 3 (0.00-3.0) % Basophils # (0-0.4) Platelet Estimate NORMAL (NORMAL) RBC Morphology NORMAL Puncture Site LEFT BRACHIAL pCO2 58 H (35-45) mmHg pO2 58 L (75-100) mmHg Base Excess -12.1 L (-2.0-2.0) O2 Saturation 79.7 L (94-100) g/dF ABG pH 7.10 L* (7.35-7.45) ABG HCO3 18.0 L (22-28) ABG O2 Sat (Measured) 81.2 L (95-100) % Deondre Test NOT APPLICABLE A-a Gradient 583 a/A Ratio 0.09 Hemoglobin 17.2 Carboxyhemoglobin 1.3 (0.0-6.9) % THgb Methemoglobin 0.6 L (1.4-1.5) % Potassium 3.7 3.9 (3.5-5.1) Temperature 37.0 C POC O2 Flow Rate 100 % Sodium 134 L (137-145) mmol/L Chloride 94 L (98-107) mmol/L Carbon Dioxide 22 (22-30) mmol/L Anion Gap 21.5 H (5-15) MEQ/L BUN 18 H (7-17) mg/dL Creatinine 0.76 (0.52-1.04) mg/dL Estimated GFR > 60.0 ML/MIN Glucose 518 H* (74-106) mg/dL POC Glucometer (74 to 106) mg/dL Lactic Acid 8.3 H (0.4-2.0) Calcium 9.6 (8.4-10.2) mg/dL Magnesium (1.6-2.3) mg/dL Total Bilirubin 0.60 (0.2-1.3) mg/dL AST 46 H (14-36) U/L ALT 21 (0-35) U/L Alkaline Phosphatase 198 H (38-126) U/L Troponin I (0.000-0.034) ng/mL NT-Pro-B Natriuret Pep (0-1800) pg/mL Serum Total Protein 8.4 H (6.3-8.2) g/dL Albumin 4.5 (3.5-5.0) g/dL Procalcitonin (0.030-0.080) ng/mL Urine Color (YELLOW) Urine Appearance (CLEAR) Urine pH (5-6) Ur Specific [place] (1.005-1.025) Urine Protein (Negative) Urine Ketones (NEGATIVE) Urine Blood (0-5) Ashish/ul Urine Nitrite (NEGATIVE) Urine Bilirubin (NEGATIVE) Urine Urobilinogen (0-1) mg/dL Ur Leukocyte Esterase (NEGATIVE) Urine WBC (Auto) (0-5) /HPF Urine RBC (Auto) (0-2) /HPF U Hyaline Cast (Auto) (0-2) /LPF U Epithel Cells (Auto) (FEW) /HPF Urine Bacteria (Auto) (NEGATIVE) /HPF Urine Culture Reflexed (NO) Urine Glucose (NEGATIVE) mg/dL Influenza Type A Ag (NEGATIVE) Influenza Type B Ag (NEGATIVE) RSV (PCR) (Negative) SARS-CoV-2 (PCR) (NEGATIVE) 01/15/21 01/15/21 01/15/21 Range/Units 20:23 20:23 20:23 WBC (4.0-10.5) K/mm3 RBC (4.1-5.4) M/mm3 Hgb (12.0-16.0) gm/dl Hct (35-47) % MCV (78-100) fl MCH (26-32) pg MCHC (32-36) g/dl RDW (11.5-14.0) % Plt Count (150-450) K/mm3 MPV (7.5-11.0) fl Gran % (36.0-66.0) % Eos # (Auto) (0-0.5) Absolute Lymphs (auto) (1.0-4.6) Absolute Monos (auto) (0.0-1.3) Lymphocytes % (24.0-44.0) % Monocytes % (0.0-12.0) % Eosinophils % (0.00-5.0) % Basophils % (0.0-0.4) % Absolute Granulocytes (1.4-6.9) Segmented Neutrophils (36.0-66.0) % Lymphocytes (Manual) (24-44) % Monocytes (Manual) (0.0-12.0) % Eosinophils (Manual) (0.00-3.0) % Basophils # (0-0.4) Platelet Estimate (NORMAL) RBC Morphology Puncture Site pCO2 (35-45) mmHg pO2 (75-100) mmHg Base Excess (-2.0-2.0) O2 Saturation (94-100) g/dF ABG pH (7.35-7.45) ABG HCO3 (22-28) ABG O2 Sat (Measured) (95-100) % Deondre Test A-a Gradient a/A Ratio Hemoglobin Carboxyhemoglobin (0.0-6.9) % THgb Methemoglobin (1.4-1.5) % Potassium (3.5-5.1) Temperature C POC O2 Flow Rate % Sodium (137-145) mmol/L Chloride (98-107) mmol/L Carbon Dioxide (22-30) mmol/L Anion Gap (5-15) MEQ/L BUN (7-17) mg/dL Creatinine (0.52-1.04) mg/dL Estimated GFR ML/MIN Glucose (74-106) mg/dL POC Glucometer (74 to 106) mg/dL Lactic Acid (0.4-2.0) Calcium (8.4-10.2) mg/dL Magnesium (1.6-2.3) mg/dL Total Bilirubin (0.2-1.3) mg/dL AST (14-36) U/L ALT (0-35) U/L Alkaline Phosphatase (38-126) U/L Troponin I 0.104 H* (0.000-0.034) ng/mL NT-Pro-B Natriuret Pep 1610 (0-1800) pg/mL Serum Total Protein (6.3-8.2) g/dL Albumin (3.5-5.0) g/dL Procalcitonin 0.060 (0.030-0.080) ng/mL Urine Color (YELLOW) Urine Appearance (CLEAR) Urine pH (5-6) Ur Specific [place] (1.005-1.025) Urine Protein (Negative) Urine Ketones (NEGATIVE) Urine Blood (0-5) Ashish/ul Urine Nitrite (NEGATIVE) Urine Bilirubin (NEGATIVE) Urine Urobilinogen (0-1) mg/dL Ur Leukocyte Esterase (NEGATIVE) Urine WBC (Auto) (0-5) /HPF Urine RBC (Auto) (0-2) /HPF U Hyaline Cast (Auto) (0-2) /LPF U Epithel Cells (Auto) (FEW) /HPF Urine Bacteria (Auto) (NEGATIVE) /HPF Urine Culture Reflexed (NO) Urine Glucose (NEGATIVE) mg/dL Influenza Type A Ag (NEGATIVE) Influenza Type B Ag (NEGATIVE) RSV (PCR) (Negative) SARS-CoV-2 (PCR) (NEGATIVE) 01/15/21 01/15/21 01/15/21 Range/Units 20:47 22:25 22:42 WBC (4.0-10.5) K/mm3 RBC (4.1-5.4) M/mm3 Hgb (12.0-16.0) gm/dl Hct (35-47) % MCV (78-100) fl MCH (26-32) pg MCHC (32-36) g/dl RDW (11.5-14.0) % Plt Count (150-450) K/mm3 MPV (7.5-11.0) fl Gran % (36.0-66.0) % Eos # (Auto) (0-0.5) Absolute Lymphs (auto) (1.0-4.6) Absolute Monos (auto) (0.0-1.3) Lymphocytes % (24.0-44.0) % Monocytes % (0.0-12.0) % Eosinophils % (0.00-5.0) % Basophils % (0.0-0.4) % Absolute Granulocytes (1.4-6.9) Segmented Neutrophils (36.0-66.0) % Lymphocytes (Manual) (24-44) % Monocytes (Manual) (0.0-12.0) % Eosinophils (Manual) (0.00-3.0) % Basophils # (0-0.4) Platelet Estimate (NORMAL) RBC Morphology Puncture Site pCO2 (35-45) mmHg pO2 (75-100) mmHg Base Excess (-2.0-2.0) O2 Saturation (94-100) g/dF ABG pH (7.35-7.45) ABG HCO3 (22-28) ABG O2 Sat (Measured) (95-100) % Deondre Test A-a Gradient a/A Ratio Hemoglobin Carboxyhemoglobin (0.0-6.9) % THgb Methemoglobin (1.4-1.5) % Potassium (3.5-5.1) Temperature C POC O2 Flow Rate % Sodium (137-145) mmol/L Chloride (98-107) mmol/L Carbon Dioxide (22-30) mmol/L Anion Gap (5-15) MEQ/L BUN (7-17) mg/dL Creatinine (0.52-1.04) mg/dL Estimated GFR ML/MIN Glucose (74-106) mg/dL POC Glucometer 496 H (74 to 106) mg/dL Lactic Acid (0.4-2.0) Calcium (8.4-10.2) mg/dL Magnesium (1.6-2.3) mg/dL Total Bilirubin (0.2-1.3) mg/dL AST (14-36) U/L ALT (0-35) U/L Alkaline Phosphatase (38-126) U/L Troponin I (0.000-0.034) ng/mL NT-Pro-B Natriuret Pep (0-1800) pg/mL Serum Total Protein (6.3-8.2) g/dL Albumin (3.5-5.0) g/dL Procalcitonin (0.030-0.080) ng/mL Urine Color STRAW (YELLOW) Urine Appearance CLEAR (CLEAR) Urine pH 5.0 (5-6) Ur Specific [place] 1.007 (1.005-1.025) Urine Protein 30 (Negative) Urine Ketones NEGATIVE (NEGATIVE) Urine Blood SMALL (0-5) Ashish/ul Urine Nitrite NEGATIVE (NEGATIVE) Urine Bilirubin NEGATIVE (NEGATIVE) Urine Urobilinogen NEGATIVE (0-1) mg/dL Ur Leukocyte Esterase NEGATIVE (NEGATIVE) Urine WBC (Auto) NONE (0-5) /HPF Urine RBC (Auto) 3-5 (0-2) /HPF U Hyaline Cast (Auto) 0-2 (0-2) /LPF U Epithel Cells (Auto) NONE (FEW) /HPF Urine Bacteria (Auto) NONE (NEGATIVE) /HPF Urine Culture Reflexed ORDERED SEPARATELY (NO) Urine Glucose >=500 (NEGATIVE) mg/dL Influenza Type A Ag NEGATIVE (NEGATIVE) Influenza Type B Ag NEGATIVE (NEGATIVE) RSV (PCR) NEGATIVE (Negative) SARS-CoV-2 (PCR) NEGATIVE (NEGATIVE) 01/15/21 01/15/21 01/16/21 Range/Units 23:37 23:40 00:09 WBC (4.0-10.5) K/mm3 RBC (4.1-5.4) M/mm3 Hgb (12.0-16.0) gm/dl Hct (35-47) % MCV (78-100) fl MCH (26-32) pg MCHC (32-36) g/dl RDW (11.5-14.0) % Plt Count (150-450) K/mm3 MPV (7.5-11.0) fl Gran % (36.0-66.0) % Eos # (Auto) (0-0.5) Absolute Lymphs (auto) (1.0-4.6) Absolute Monos (auto) (0.0-1.3) Lymphocytes % (24.0-44.0) % Monocytes % (0.0-12.0) % Eosinophils % (0.00-5.0) % Basophils % (0.0-0.4) % Absolute Granulocytes (1.4-6.9) Segmented Neutrophils (36.0-66.0) % Lymphocytes (Manual) (24-44) % Monocytes (Manual) (0.0-12.0) % Eosinophils (Manual) (0.00-3.0) % Basophils # (0-0.4) Platelet Estimate (NORMAL) RBC Morphology Puncture Site pCO2 (35-45) mmHg pO2 (75-100) mmHg Base Excess (-2.0-2.0) O2 Saturation (94-100) g/dF ABG pH (7.35-7.45) ABG HCO3 (22-28) ABG O2 Sat (Measured) (95-100) % Deondre Test A-a Gradient a/A Ratio Hemoglobin Carboxyhemoglobin (0.0-6.9) % THgb Methemoglobin (1.4-1.5) % Potassium (3.5-5.1) Temperature C POC O2 Flow Rate % Sodium (137-145) mmol/L Chloride (98-107) mmol/L Carbon Dioxide (22-30) mmol/L Anion Gap (5-15) MEQ/L BUN (7-17) mg/dL Creatinine (0.52-1.04) mg/dL Estimated GFR ML/MIN Glucose (74-106) mg/dL POC Glucometer 360 H (74 to 106) mg/dL Lactic Acid 3.6 H (0.4-2.0) Calcium (8.4-10.2) mg/dL Magnesium (1.6-2.3) mg/dL Total Bilirubin (0.2-1.3) mg/dL AST (14-36) U/L ALT (0-35) U/L Alkaline Phosphatase (38-126) U/L Troponin I 0.404 H* (0.000-0.034) ng/mL NT-Pro-B Natriuret Pep (0-1800) pg/mL Serum Total Protein (6.3-8.2) g/dL Albumin (3.5-5.0) g/dL Procalcitonin (0.030-0.080) ng/mL Urine Color (YELLOW) Urine Appearance (CLEAR) Urine pH (5-6) Ur Specific [place] (1.005-1.025) Urine Protein (Negative) Urine Ketones (NEGATIVE) Urine Blood (0-5) Ashish/ul Urine Nitrite (NEGATIVE) Urine Bilirubin (NEGATIVE) Urine Urobilinogen (0-1) mg/dL Ur Leukocyte Esterase (NEGATIVE) Urine WBC (Auto) (0-5) /HPF Urine RBC (Auto) (0-2) /HPF U Hyaline Cast (Auto) (0-2) /LPF U Epithel Cells (Auto) (FEW) /HPF Urine Bacteria (Auto) (NEGATIVE) /HPF Urine Culture Reflexed (NO) Urine Glucose (NEGATIVE) mg/dL Influenza Type A Ag (NEGATIVE) Influenza Type B Ag (NEGATIVE) RSV (PCR) (Negative) SARS-CoV-2 (PCR) (NEGATIVE) 01/16/21 01/16/21 01/16/21 Range/Units 00:55 01:00 01:22 WBC (4.0-10.5) K/mm3 RBC (4.1-5.4) M/mm3 Hgb (12.0-16.0) gm/dl Hct (35-47) % MCV (78-100) fl MCH (26-32) pg MCHC (32-36) g/dl RDW (11.5-14.0) % Plt Count (150-450) K/mm3 MPV (7.5-11.0) fl Gran % (36.0-66.0) % Eos # (Auto) (0-0.5) Absolute Lymphs (auto) (1.0-4.6) Absolute Monos (auto) (0.0-1.3) Lymphocytes % (24.0-44.0) % Monocytes % (0.0-12.0) % Eosinophils % (0.00-5.0) % Basophils % (0.0-0.4) % Absolute Granulocytes (1.4-6.9) Segmented Neutrophils (36.0-66.0) % Lymphocytes (Manual) (24-44) % Monocytes (Manual) (0.0-12.0) % Eosinophils (Manual) (0.00-3.0) % Basophils # (0-0.4) Platelet Estimate (NORMAL) RBC Morphology Puncture Site pCO2 (35-45) mmHg pO2 (75-100) mmHg Base Excess (-2.0-2.0) O2 Saturation (94-100) g/dF ABG pH (7.35-7.45) ABG HCO3 (22-28) ABG O2 Sat (Measured) (95-100) % Deondre Test A-a Gradient a/A Ratio Hemoglobin Carboxyhemoglobin (0.0-6.9) % THgb Methemoglobin (1.4-1.5) % Potassium 4.1 (3.5-5.1) Temperature C POC O2 Flow Rate % Sodium 132 L (137-145) mmol/L Chloride 100 (98-107) mmol/L Carbon Dioxide 20 L (22-30) mmol/L Anion Gap 16.2 H (5-15) MEQ/L BUN 19 H (7-17) mg/dL Creatinine 0.74 (0.52-1.04) mg/dL Estimated GFR > 60.0 ML/MIN Glucose 424 H (74-106) mg/dL POC Glucometer 353 H (74 to 106) mg/dL Lactic Acid (0.4-2.0) Calcium 9.4 (8.4-10.2) mg/dL Magnesium 2.8 H (1.6-2.3) mg/dL Total Bilirubin (0.2-1.3) mg/dL AST (14-36) U/L ALT (0-35) U/L Alkaline Phosphatase (38-126) U/L Troponin I (0.000-0.034) ng/mL NT-Pro-B Natriuret Pep (0-1800) pg/mL Serum Total Protein (6.3-8.2) g/dL Albumin (3.5-5.0) g/dL Procalcitonin (0.030-0.080) ng/mL Urine Color (YELLOW) Urine Appearance (CLEAR) Urine pH (5-6) Ur Specific [place] (1.005-1.025) Urine Protein (Negative) Urine Ketones (NEGATIVE) Urine Blood (0-5) Asihsh/ul Urine Nitrite (NEGATIVE) Urine Bilirubin (NEGATIVE) Urine Urobilinogen (0-1) mg/dL Ur Leukocyte Esterase (NEGATIVE) Urine WBC (Auto) (0-5) /HPF Urine RBC (Auto) (0-2) /HPF U Hyaline Cast (Auto) (0-2) /LPF U Epithel Cells (Auto) (FEW) /HPF Urine Bacteria (Auto) (NEGATIVE) /HPF Urine Culture Reflexed (NO) Urine Glucose (NEGATIVE) mg/dL Influenza Type A Ag (NEGATIVE) Influenza Type B Ag (NEGATIVE) RSV (PCR) (Negative) SARS-CoV-2 (PCR) (NEGATIVE) 01/16/21 01/16/21 01/16/21 Range/Units 01:33 02:00 03:02 WBC (4.0-10.5) K/mm3 RBC (4.1-5.4) M/mm3 Hgb (12.0-16.0) gm/dl Hct (35-47) % MCV (78-100) fl MCH (26-32) pg MCHC (32-36) g/dl RDW (11.5-14.0) % Plt Count (150-450) K/mm3 MPV (7.5-11.0) fl Gran % (36.0-66.0) % Eos # (Auto) (0-0.5) Absolute Lymphs (auto) (1.0-4.6) Absolute Monos (auto) (0.0-1.3) Lymphocytes % (24.0-44.0) % Monocytes % (0.0-12.0) % Eosinophils % (0.00-5.0) % Basophils % (0.0-0.4) % Absolute Granulocytes (1.4-6.9) Segmented Neutrophils (36.0-66.0) % Lymphocytes (Manual) (24-44) % Monocytes (Manual) (0.0-12.0) % Eosinophils (Manual) (0.00-3.0) % Basophils # (0-0.4) Platelet Estimate (NORMAL) RBC Morphology Puncture Site LEFT BRACHIAL pCO2 35 (35-45) mmHg pO2 58 L (75-100) mmHg Base Excess 1.4 (-2.0-2.0) O2 Saturation 89.0 L (94-100) g/dF ABG pH 7.46 H (7.35-7.45) ABG HCO3 24.9 (22-28) ABG O2 Sat (Measured) 91.8 L (95-100) % Deondre Test NOT APPLICABLE A-a Gradient 397 a/A Ratio 0.13 Hemoglobin 16.4 Carboxyhemoglobin 2.1 (0.0-6.9) % THgb Methemoglobin 1.0 L (1.4-1.5) % Potassium 4.4 (3.5-5.1) Temperature 37.0 C POC O2 Flow Rate 70 % Sodium (137-145) mmol/L Chloride (98-107) mmol/L Carbon Dioxide (22-30) mmol/L Anion Gap (5-15) MEQ/L BUN (7-17) mg/dL Creatinine (0.52-1.04) mg/dL Estimated GFR ML/MIN Glucose (74-106) mg/dL POC Glucometer 349 H 337 H (74 to 106) mg/dL Lactic Acid (0.4-2.0) Calcium (8.4-10.2) mg/dL Magnesium (1.6-2.3) mg/dL Total Bilirubin (0.2-1.3) mg/dL AST (14-36) U/L ALT (0-35) U/L Alkaline Phosphatase (38-126) U/L Troponin I (0.000-0.034) ng/mL NT-Pro-B Natriuret Pep (0-1800) pg/mL Serum Total Protein (6.3-8.2) g/dL Albumin (3.5-5.0) g/dL Procalcitonin (0.030-0.080) ng/mL Urine Color (YELLOW) Urine Appearance (CLEAR) Urine pH (5-6) Ur Specific [place] (1.005-1.025) Urine Protein (Negative) Urine Ketones (NEGATIVE) Urine Blood (0-5) Ashish/ul Urine Nitrite (NEGATIVE) Urine Bilirubin (NEGATIVE) Urine Urobilinogen (0-1) mg/dL Ur Leukocyte Esterase (NEGATIVE) Urine WBC (Auto) (0-5) /HPF Urine RBC (Auto) (0-2) /HPF U Hyaline Cast (Auto) (0-2) /LPF U Epithel Cells (Auto) (FEW) /HPF Urine Bacteria (Auto) (NEGATIVE) /HPF Urine Culture Reflexed (NO) Urine Glucose (NEGATIVE) mg/dL Influenza Type A Ag (NEGATIVE) Influenza Type B Ag (NEGATIVE) RSV (PCR) (Negative) SARS-CoV-2 (PCR) (NEGATIVE) 01/16/21 01/16/21 01/16/21 Range/Units 04:01 05:06 06:01 WBC (4.0-10.5) K/mm3 RBC (4.1-5.4) M/mm3 Hgb (12.0-16.0) gm/dl Hct (35-47) % MCV (78-100) fl MCH (26-32) pg MCHC (32-36) g/dl RDW (11.5-14.0) % Plt Count (150-450) K/mm3 MPV (7.5-11.0) fl Gran % (36.0-66.0) % Eos # (Auto) (0-0.5) Absolute Lymphs (auto) (1.0-4.6) Absolute Monos (auto) (0.0-1.3) Lymphocytes % (24.0-44.0) % Monocytes % (0.0-12.0) % Eosinophils % (0.00-5.0) % Basophils % (0.0-0.4) % Absolute Granulocytes (1.4-6.9) Segmented Neutrophils (36.0-66.0) % Lymphocytes (Manual) (24-44) % Monocytes (Manual) (0.0-12.0) % Eosinophils (Manual) (0.00-3.0) % Basophils # (0-0.4) Platelet Estimate (NORMAL) RBC Morphology Puncture Site pCO2 (35-45) mmHg pO2 (75-100) mmHg Base Excess (-2.0-2.0) O2 Saturation (94-100) g/dF ABG pH (7.35-7.45) ABG HCO3 (22-28) ABG O2 Sat (Measured) (95-100) % Deondre Test A-a Gradient a/A Ratio Hemoglobin Carboxyhemoglobin (0.0-6.9) % THgb Methemoglobin (1.4-1.5) % Potassium (3.5-5.1) Temperature C POC O2 Flow Rate % Sodium (137-145) mmol/L Chloride (98-107) mmol/L Carbon Dioxide (22-30) mmol/L Anion Gap (5-15) MEQ/L BUN (7-17) mg/dL Creatinine (0.52-1.04) mg/dL Estimated GFR ML/MIN Glucose (74-106) mg/dL POC Glucometer 302 H 230 H 224 H (74 to 106) mg/dL Lactic Acid (0.4-2.0) Calcium (8.4-10.2) mg/dL Magnesium (1.6-2.3) mg/dL Total Bilirubin (0.2-1.3) mg/dL AST (14-36) U/L ALT (0-35) U/L Alkaline Phosphatase (38-126) U/L Troponin I (0.000-0.034) ng/mL NT-Pro-B Natriuret Pep (0-1800) pg/mL Serum Total Protein (6.3-8.2) g/dL Albumin (3.5-5.0) g/dL Procalcitonin (0.030-0.080) ng/mL Urine Color (YELLOW) Urine Appearance (CLEAR) Urine pH (5-6) Ur Specific [place] (1.005-1.025) Urine Protein (Negative) Urine Ketones (NEGATIVE) Urine Blood (0-5) Ashish/ul Urine Nitrite (NEGATIVE) Urine Bilirubin (NEGATIVE) Urine Urobilinogen (0-1) mg/dL Ur Leukocyte Esterase (NEGATIVE) Urine WBC (Auto) (0-5) /HPF Urine RBC (Auto) (0-2) /HPF U Hyaline Cast (Auto) (0-2) /LPF U Epithel Cells (Auto) (FEW) /HPF Urine Bacteria (Auto) (NEGATIVE) /HPF Urine Culture Reflexed (NO) Urine Glucose (NEGATIVE) mg/dL Influenza Type A Ag (NEGATIVE) Influenza Type B Ag (NEGATIVE) RSV (PCR) (Negative) SARS-CoV-2 (PCR) (NEGATIVE) 01/16/21 01/16/21 01/16/21 Range/Units 06:17 06:17 06:17 WBC 12.1 H (4.0-10.5) K/mm3 RBC 5.29 (4.1-5.4) M/mm3 Hgb 14.9 (12.0-16.0) gm/dl Hct 46.0 (35-47) % MCV 87.0 (78-100) fl MCH 28.2 (26-32) pg MCHC 32.4 (32-36) g/dl RDW 12.7 (11.5-14.0) % Plt Count 285 (150-450) K/mm3 MPV 9.3 (7.5-11.0) fl Gran % 89.7 H (36.0-66.0) % Eos # (Auto) 0 (0-0.5) Absolute Lymphs (auto) 0.99 L (1.0-4.6) Absolute Monos (auto) 0.23 (0.0-1.3) Lymphocytes % 8.2 L (24.0-44.0) % Monocytes % 1.9 (0.0-12.0) % Eosinophils % 0.0 (0.00-5.0) % Basophils % 0.2 (0.0-0.4) % Absolute Granulocytes 10.90 H (1.4-6.9) Segmented Neutrophils (36.0-66.0) % Lymphocytes (Manual) (24-44) % Monocytes (Manual) (0.0-12.0) % Eosinophils (Manual) (0.00-3.0) % Basophils # 0.02 (0-0.4) Platelet Estimate (NORMAL) RBC Morphology Puncture Site pCO2 (35-45) mmHg pO2 (75-100) mmHg Base Excess (-2.0-2.0) O2 Saturation (94-100) g/dF ABG pH (7.35-7.45) ABG HCO3 (22-28) ABG O2 Sat (Measured) (95-100) % Deondre Test A-a Gradient a/A Ratio Hemoglobin Carboxyhemoglobin (0.0-6.9) % THgb Methemoglobin (1.4-1.5) % Potassium 4.1 (3.5-5.1) Temperature C POC O2 Flow Rate % Sodium 137 (137-145) mmol/L Chloride 102 (98-107) mmol/L Carbon Dioxide 24 (22-30) mmol/L Anion Gap 14.9 (5-15) MEQ/L BUN 23 H (7-17) mg/dL Creatinine 0.74 (0.52-1.04) mg/dL Estimated GFR > 60.0 ML/MIN Glucose 218 H (74-106) mg/dL POC Glucometer (74 to 106) mg/dL Lactic Acid (0.4-2.0) Calcium 9.5 (8.4-10.2) mg/dL Magnesium (1.6-2.3) mg/dL Total Bilirubin 0.50 (0.2-1.3) mg/dL AST 27 (14-36) U/L ALT 20 (0-35) U/L Alkaline Phosphatase 111 (38-126) U/L Troponin I 0.547 H* (0.000-0.034) ng/mL NT-Pro-B Natriuret Pep (0-1800) pg/mL Serum Total Protein 6.9 (6.3-8.2) g/dL Albumin 3.7 (3.5-5.0) g/dL Procalcitonin (0.030-0.080) ng/mL Urine Color (YELLOW) Urine Appearance (CLEAR) Urine pH (5-6) Ur Specific [place] (1.005-1.025) Urine Protein (Negative) Urine Ketones (NEGATIVE) Urine Blood (0-5) Ashish/ul Urine Nitrite (NEGATIVE) Urine Bilirubin (NEGATIVE) Urine Urobilinogen (0-1) mg/dL Ur Leukocyte Esterase (NEGATIVE) Urine WBC (Auto) (0-5) /HPF Urine RBC (Auto) (0-2) /HPF U Hyaline Cast (Auto) (0-2) /LPF U Epithel Cells (Auto) (FEW) /HPF Urine Bacteria (Auto) (NEGATIVE) /HPF Urine Culture Reflexed (NO) Urine Glucose (NEGATIVE) mg/dL Influenza Type A Ag (NEGATIVE) Influenza Type B Ag (NEGATIVE) RSV (PCR) (Negative) SARS-CoV-2 (PCR) (NEGATIVE) 01/16/21 01/16/21 Range/Units 07:01 08:10 WBC (4.0-10.5) K/mm3 RBC (4.1-5.4) M/mm3 Hgb (12.0-16.0) gm/dl Hct (35-47) % MCV (78-100) fl MCH (26-32) pg MCHC (32-36) g/dl RDW (11.5-14.0) % Plt Count (150-450) K/mm3 MPV (7.5-11.0) fl Gran % (36.0-66.0) % Eos # (Auto) (0-0.5) Absolute Lymphs (auto) (1.0-4.6) Absolute Monos (auto) (0.0-1.3) Lymphocytes % (24.0-44.0) % Monocytes % (0.0-12.0) % Eosinophils % (0.00-5.0) % Basophils % (0.0-0.4) % Absolute Granulocytes (1.4-6.9) Segmented Neutrophils (36.0-66.0) % Lymphocytes (Manual) (24-44) % Monocytes (Manual) (0.0-12.0) % Eosinophils (Manual) (0.00-3.0) % Basophils # (0-0.4) Platelet Estimate (NORMAL) RBC Morphology Puncture Site pCO2 (35-45) mmHg pO2 (75-100) mmHg Base Excess (-2.0-2.0) O2 Saturation (94-100) g/dF ABG pH (7.35-7.45) ABG HCO3 (22-28) ABG O2 Sat (Measured) (95-100) % Deondre Test A-a Gradient a/A Ratio Hemoglobin Carboxyhemoglobin (0.0-6.9) % THgb Methemoglobin (1.4-1.5) % Potassium (3.5-5.1) Temperature C POC O2 Flow Rate % Sodium (137-145) mmol/L Chloride (98-107) mmol/L Carbon Dioxide (22-30) mmol/L Anion Gap (5-15) MEQ/L BUN (7-17) mg/dL Creatinine (0.52-1.04) mg/dL Estimated GFR ML/MIN Glucose (74-106) mg/dL POC Glucometer 212 H 193 H (74 to 106) mg/dL Lactic Acid (0.4-2.0) Calcium (8.4-10.2) mg/dL Magnesium (1.6-2.3) mg/dL Total Bilirubin (0.2-1.3) mg/dL AST (14-36) U/L ALT (0-35) U/L Alkaline Phosphatase (38-126) U/L Troponin I (0.000-0.034) ng/mL NT-Pro-B Natriuret Pep (0-1800) pg/mL Serum Total Protein (6.3-8.2) g/dL Albumin (3.5-5.0) g/dL Procalcitonin (0.030-0.080) ng/mL Urine Color (YELLOW) Urine Appearance (CLEAR) Urine pH (5-6) Ur Specific [place] (1.005-1.025) Urine Protein (Negative) Urine Ketones (NEGATIVE) Urine Blood (0-5) Ashish/ul Urine Nitrite (NEGATIVE) Urine Bilirubin (NEGATIVE) Urine Urobilinogen (0-1) mg/dL Ur Leukocyte Esterase (NEGATIVE) Urine WBC (Auto) (0-5) /HPF Urine RBC (Auto) (0-2) /HPF U Hyaline Cast (Auto) (0-2) /LPF U Epithel Cells (Auto) (FEW) /HPF Urine Bacteria (Auto) (NEGATIVE) /HPF Urine Culture Reflexed (NO) Urine Glucose (NEGATIVE) mg/dL Influenza Type A Ag (NEGATIVE) Influenza Type B Ag (NEGATIVE) RSV (PCR) (Negative) SARS-CoV-2 (PCR) (NEGATIVE) Accuchecks Date 01/16/21 Date 01/16/21 Date 01/16/21 Date 01/16/21 Time 06:00 Time 05:00 Time 04:00 Time 03:00 - Radiology Impressions Radiology Exams & Impressions: Radiology Procedures Category Date Time Status CHEST 1 VIEW (PORTABLE) Stat Exams 01/15/21 19:43 Completed - Other Procedures and Tests Respiratory Therapy 01/15/21 21:28 Respiratory Therapy Assessment DAILY 01/16/21 00:58 Oxygen Oxymizer LPM 9 lpm Assessment/Plan (1) Respiratory acidosis with metabolic acidosis Current Visit: Yes Status: Acute Assessment & Plan: Chief Complaint Diagnosis shortness of breath for 4 hours Allergies Allergy/AdvReac Type Severity Reaction Status Date / Time fentanyl Allergy Unknown Verified 01/16/21 00:00 glycopyrrolate [From Robinul] Allergy Unknown Verified 01/16/21 00:00 lidocaine Allergy Unknown Verified 01/16/21 00:00 propofol Allergy Unknown Verified 01/16/21 00:00 rocuronium bromide Allergy Unknown Verified 01/16/21 00:00 [From Zemuron] Antihistamines - Alkylamine AdvReac Unknown Verified 01/16/21 00:00 metoprolol AdvReac Unknown Verified 01/16/21 00:00 Vital Signs (Last 24 hours) Temp Pulse Resp BP BP Pulse Ox 01/16/21 08:00 97.7 F 108 H 27 H 103/69 94 L 01/16/21 06:20 103 H 24 96 01/16/21 04:06 110 H 111/77 01/16/21 04:00 98.7 F 93 H 23 101/71 93 L 01/16/21 01:30 89 20 97 01/16/21 01:28 98.8 F 108 H 26 H 124/85 95 01/15/21 23:36 99.1 F 94 H 28 H 113/75 94 L 01/15/21 22:46 99.1 F 108 H 30 H 138/84 95 01/15/21 22:13 99.1 F 115 H 30 H 118/87 97 01/15/21 21:44 99.1 F 109 H 30 H 111/74 98 01/15/21 21:43 94 L 01/15/21 21:15 99.7 F 112 H 34 H 91/60 94 L 01/15/21 21:05 117 H 34 H 95/68 92 L 01/15/21 21:02 108 H 102/67 01/15/21 21:00 120 H 35 H 100/73 97 01/15/21 20:43 99.5 F 117 H 36 H 102/61 98 01/15/21 20:38 119 H 39 H 107/80 97 01/15/21 20:34 40 H 84 L 01/15/21 20:30 44 H 109/70 95 01/15/21 20:29 121 H 35 H 111/72 95 01/15/21 20:24 124 H 40 H 121/86 96 01/15/21 20:20 130 H 43 H 145/97 97 01/15/21 20:15 137 H 40 H 83 L 01/15/21 20:14 137 H 44 H 155/96 84 L 01/15/21 20:11 139 H 40 H 124/103 80 L 01/15/21 20:02 143 H 36 H 167/106 167/106 82 L 01/15/21 19:45 169/139 89 L Home Medications Medication Instructions Recorded Confirmed Last Taken Type Carvedilol 3.125 mg [Coreg 3.125 mg PO BID 01/16/21 01/16/21 01/15/21 History 3.125 MG] Cinnamon Bark [Cinnamon] 1 tab PO QAM 01/16/21 01/16/21 Unknown History Furosemide [Lasix] 20 mg PO BID 01/16/21 01/16/21 01/15/21 History Losartan Potassium 25 mg PO DAILY 01/16/21 01/16/21 01/15/21 History Potassium Chloride 10 meq PO HS 01/16/21 01/16/21 01/15/21 History Vit A/Vit C/Vit E/Zinc/Copper 2 tab PO QAM 01/16/21 01/16/21 01/15/21 History [Preservision Areds Tablet] Current Medications Generic Name Dose Route Start Last Admin Trade Name Freq PRN Reason Stop Dose Admin Acetaminophen 650 mg 01/16/21 00:26 Acetaminophen 325 Mg Tablet PO 02/15/21 00:25 Q4H PRN PRN PAIN AND/OR FEVER Albuterol/Ipratropium 3 ml 01/16/21 01:00 01/16/21 06:20 Ipratropium/Albuterol Sulfate 3 Ml Ampul.Neb IH 02/15/21 00:59 3 ml Q6HRT MADAY Administration Enoxaparin Sodium 40 mg 01/16/21 10:00 Enoxaparin Sodium 40 Mg/0.4 Ml Syringe SQ 02/15/21 09:59 DAILY MADAY Furosemide 20 mg 01/16/21 21:05 01/15/21 21:27 Furosemide 20 Mg/Vial IV 01/16/21 21:06 20 mg STAT ONE Administration Nitroglycerin/Dextrose 250 mls @ 1.5 mls/hr 01/15/21 21:05 01/16/21 04:06 Ntg 0.2mg/Ml In D5w Glass IV 02/14/21 21:04 16.67 mcg/min .Q24H PRN 5 mls/hr CHEST PAIN Titration Protocol 5 MCG/MIN Insulin Human Regular 100 unit 100 mls @ 5 mls/hr 01/15/21 22:02 01/16/21 08:19 / Sodium Chloride IV 02/14/21 21:58 5 unit/hr .Q20H PRN 5 mls/hr DKA/HYPERGLYCEMIA Infusion 5 UNIT/HR Potassium Chloride/Sodium Chloride 1,000 mls @ 100 mls/hr 01/16/21 00:26 Sodium Chloride 0.9% W/ 20 Meq Kcl/Liter IV 02/15/21 00:25 .Q10H MADAY Pantoprazole Sodium 40 mg 01/16/21 10:00 Pantoprazole 40 Mg Vial IV 02/15/21 09:59 Q24H10 MADAY Discontinued Medications Generic Name Dose Route Start Last Admin Trade Name Sammie PRN Reason Stop Dose Admin Hydrocodone Bitart/Acetaminophen Confirm 01/15/21 19:57 Hydrocodone/Acetaminophen 5 Ml Udcup Administered 01/15/21 19:58 Dose 10 ml .ROUTE .STK-MED ONE Hydrocodone Bitart/Acetaminophen 10 ml 01/15/21 20:14 01/15/21 20:16 Hydrocodone/Acetaminophen 5 Ml Udcup PO 01/15/21 20:15 10 ml STAT STA Administration Albuterol/Ipratropium Confirm 01/15/21 19:46 Ipratropium/Albuterol Sulfate 3 Ml Ampul.Neb Administered 01/15/21 19:47 Dose 3 ml IH .STK-MED ONE Albuterol/Ipratropium 3 ml 01/15/21 20:01 01/15/21 19:45 Ipratropium/Albuterol Sulfate 3 Ml Ampul.Neb IH 01/15/21 20:02 3 ml STAT ONE Administration Aspirin 324 mg 01/15/21 21:23 01/15/21 21:32 Aspirin 81 Mg Tab.Chew PO 01/15/21 21:24 324 mg STAT ONE Administration Aspirin Confirm 01/15/21 21:25 Aspirin 81 Mg Tab.Chew Administered 01/15/21 21:26 Dose 324 mg .ROUTE .STK-MED ONE Methylprednisolone Sodium 0 mg 01/15/21 19:59 01/15/21 19:50 Succinate 125 mg/ Sterile IV 01/15/21 20:00 125 mg Water 2 ml STAT ONE Administration Furosemide Confirm 01/15/21 19:41 Furosemide 100 Mg/10 Ml Vial Administered 01/15/21 19:42 Dose 100 mg .ROUTE .STK-MED ONE Furosemide 60 mg 01/15/21 20:01 01/15/21 19:50 Furosemide 100 Mg/10 Ml Vial IV 01/15/21 20:02 60 mg STAT ONE Administration Furosemide Confirm 01/15/21 20:03 Furosemide 40 Mg/4 Ml Vial Administered 01/15/21 20:04 Dose 40 mg .ROUTE .STK-MED ONE Nitroglycerin/Dextrose Confirm 01/15/21 20:00 Ntg 0.2mg/Ml In D5w Glass Administered 01/15/21 20:01 Dose 250 mls @ ud IV .STK-MED ONE Magnesium Sulfate/Dextrose 100 mls @ 100 mls/hr 01/15/21 21:45 01/15/21 22:43 Magnesium 1 Gm / 100 Ml D5w IV 01/15/21 23:44 100 mls/hr Q1H MADAY Administration Sodium Chloride Confirm 01/15/21 21:49 Sodium Chloride 0.9% 100 Ml Bag Administered 01/15/21 21:50 Dose 100 mls @ ud .ROUTE .STK-MED ONE Insulin Human Regular 100 unit 100 mls @ 7.98 mls/hr 01/15/21 21:59 / Sodium Chloride IV 02/14/21 21:58 .[id number] PRN DKA/HYPERGLYCEMIA Protocol 0.1 UNIT/KG/HR Insulin Human Regular 10 unit 01/15/21 21:25 01/15/21 21:36 Insulin Regular, Human 1 Unit IV 01/15/21 21:26 10 unit STAT ONE Administration Insulin Human Regular Confirm 01/15/21 21:35 Insulin Regular, Human 1 Unit Administered 01/15/21 21:36 Dose 10 unit .ROUTE .STK-MED ONE Insulin Human Regular Confirm 01/15/21 21:49 Insulin Regular, Human 1 Unit Administered 01/15/21 21:50 Dose 1 unit .ROUTE .STK-MED ONE Methylprednisolone Sodium Succinate Confirm 01/15/21 19:45 Methylprednis Sod Succ 125 Mg/2 Ml Vial Administered 01/15/21 19:46 Dose 125 mg .ROUTE .STK-MED ONE Morphine Sulfate Confirm 01/15/21 22:12 Morphine Sulfate 4 Mg/Ml Injection Administered 01/15/21 22:13 Dose 4 mg .ROUTE .STK-MED ONE Nitroglycerin Confirm 01/15/21 19:44 Nitroglycerin 1 Gm Packet Administered 01/15/21 19:45 Dose 1 gm .ROUTE .STK-MED ONE Nitroglycerin Confirm 01/15/21 19:44 Nitroglycerin 0.4 Mg (Ed) 0.4 Mg Tab.Subl Administered 01/15/21 19:45 Dose 0.4 mg SL .STK-MED ONE Nitroglycerin 0.4 mg 01/15/21 20:00 01/15/21 19:49 Nitroglycerin 0.4 Mg (Ed) 0.4 Mg Tab.Subl SL 01/15/21 20:01 0.4 mg STAT ONE Administration Nitroglycerin 1 gm 01/15/21 20:00 01/15/21 19:55 Nitroglycerin 1 Gm Packet TOP 01/15/21 20:01 1 gm STAT ONE Administration Ondansetron HCl Confirm 01/15/21 19:47 Ondansetron Hcl 4 Mg/2 Ml Vial Administered 01/15/21 19:48 Dose 4 mg .ROUTE .STK-MED ONE Ondansetron HCl 4 mg 01/15/21 20:02 01/15/21 19:50 Ondansetron Hcl 4 Mg/2 Ml Vial IV 01/15/21 20:03 4 mg STAT ONE Administration Potassium Bicarbonate 50 meq 01/15/21 21:26 01/15/21 21:37 Potassium Bicarbonate 25 Meq Tab PO 01/15/21 21:27 50 meq STAT ONE Administration Potassium Bicarbonate Confirm 01/15/21 21:35 Potassium Bicarbonate 25 Meq Tab Administered 01/15/21 21:36 Dose 50 meq .ROUTE .STK-MED ONE Intake & Output (Last 24 hours) 01/13/21 01/14/21 01/15/21 01/16/21 11:59 11:59 11:59 11:59 Intake Total 0 Balance 0 Weight 76.3 kg Microbiology Results (Last 24 hours) 01/15/21 Unknown Blood Blood Culture Gram Stain - Pending 01/15/21 Unknown Blood Blood Culture - Pending 01/15/21 20:47 Catherized Urine Culture - Pending 01/15/21 19:50 Blood Blood Culture Gram Stain - Pending 01/15/21 19:50 Blood Blood Culture - Pending Laboratory Results (Last 24 hours) 01/16/21 01/16/21 01/16/21 08:10 07:01 06:17 WBC RBC Hgb Hct MCV MCH MCHC RDW Plt Count MPV Gran % Eos # (Auto) Absolute Lymphs (auto) Absolute Monos (auto) Lymphocytes % Monocytes % Eosinophils % Basophils % Absolute Granulocytes Segmented Neutrophils Lymphocytes (Manual) Monocytes (Manual) Eosinophils (Manual) Basophils # Platelet Estimate RBC Morphology Puncture Site pCO2 pO2 Base Excess O2 Saturation ABG pH ABG HCO3 ABG O2 Sat (Measured) Deondre Test A-a Gradient a/A Ratio Hemoglobin Carboxyhemoglobin Methemoglobin Potassium Temperature POC O2 Flow Rate Sodium Chloride Carbon Dioxide Anion Gap BUN Creatinine Estimated GFR Glucose POC Glucometer 193 H 212 H Lactic Acid Calcium Magnesium Total Bilirubin AST ALT Alkaline Phosphatase Troponin I 0.547 H* NT-Pro-B Natriuret Pep Serum Total Protein Albumin Procalcitonin Urine Color Urine Appearance Urine pH Ur Specific [place] Urine Protein Urine Ketones Urine Blood Urine Nitrite Urine Bilirubin Urine Urobilinogen Ur Leukocyte Esterase Urine WBC (Auto) Urine RBC (Auto) U Hyaline Cast (Auto) U Epithel Cells (Auto) Urine Bacteria (Auto) Urine Culture Reflexed Urine Glucose Influenza Type A Ag Influenza Type B Ag RSV (PCR) SARS-CoV-2 (PCR) 01/16/21 01/16/21 01/16/21 06:17 06:17 06:01 WBC 12.1 H RBC 5.29 Hgb 14.9 Hct 46.0 MCV 87.0 MCH 28.2 MCHC 32.4 RDW 12.7 Plt Count 285 MPV 9.3 Gran % 89.7 H Eos # (Auto) 0 Absolute Lymphs (auto) 0.99 L Absolute Monos (auto) 0.23 Lymphocytes % 8.2 L Monocytes % 1.9 Eosinophils % 0.0 Basophils % 0.2 Absolute Granulocytes 10.90 H Segmented Neutrophils Lymphocytes (Manual) Monocytes (Manual) Eosinophils (Manual) Basophils # 0.02 Platelet Estimate RBC Morphology Puncture Site pCO2 pO2 Base Excess O2 Saturation ABG pH ABG HCO3 ABG O2 Sat (Measured) Deondre Test A-a Gradient a/A Ratio Hemoglobin Carboxyhemoglobin Methemoglobin Potassium 4.1 Temperature POC O2 Flow Rate Sodium 137 Chloride 102 Carbon Dioxide 24 Anion Gap 14.9 BUN 23 H Creatinine 0.74 Estimated GFR > 60.0 Glucose 218 H POC Glucometer 224 H Lactic Acid Calcium 9.5 Magnesium Total Bilirubin 0.50 AST 27 ALT 20 Alkaline Phosphatase 111 Troponin I NT-Pro-B Natriuret Pep Serum Total Protein 6.9 Albumin 3.7 Procalcitonin Urine Color Urine Appearance Urine pH Ur Specific [place] Urine Protein Urine Ketones Urine Blood Urine Nitrite Urine Bilirubin Urine Urobilinogen Ur Leukocyte Esterase Urine WBC (Auto) Urine RBC (Auto) U Hyaline Cast (Auto) U Epithel Cells (Auto) Urine Bacteria (Auto) Urine Culture Reflexed Urine Glucose Influenza Type A Ag Influenza Type B Ag RSV (PCR) SARS-CoV-2 (PCR) 01/16/21 01/16/2101/16/21 05:06 04:01 03:02 WBC RBC Hgb Hct MCV MCH MCHC RDW Plt Count MPV Gran % Eos # (Auto) Absolute Lymphs (auto) Absolute Monos (auto) Lymphocytes % Monocytes % Eosinophils % Basophils % Absolute Granulocytes Segmented Neutrophils Lymphocytes (Manual) Monocytes (Manual) Eosinophils (Manual) Basophils # Platelet Estimate RBC Morphology Puncture Site pCO2 pO2 Base Excess O2 Saturation ABG pH ABG HCO3 ABG O2 Sat (Measured) Deondre Test A-a Gradient a/A Ratio Hemoglobin Carboxyhemoglobin Methemoglobin Potassium Temperature POC O2 Flow Rate Sodium Chloride Carbon Dioxide Anion Gap BUN Creatinine Estimated GFR Glucose POC Glucometer 230 H 302 H 337 H Lactic Acid Calcium Magnesium Total Bilirubin AST ALT Alkaline Phosphatase Troponin I NT-Pro-B Natriuret Pep Serum Total Protein Albumin Procalcitonin Urine Color Urine Appearance Urine pH Ur Specific [place] Urine Protein Urine Ketones Urine Blood Urine Nitrite Urine Bilirubin Urine Urobilinogen Ur Leukocyte Esterase Urine WBC (Auto) Urine RBC (Auto) U Hyaline Cast (Auto) U Epithel Cells (Auto) Urine Bacteria (Auto) Urine Culture Reflexed Urine Glucose Influenza Type A Ag Influenza Type B Ag RSV (PCR) SARS-CoV-2 (PCR) 01/16/21 01/16/21 01/16/21 02:00 01:33 01:22 WBC RBC Hgb Hct MCV MCH MCHC RDW Plt Count MPV Gran % Eos # (Auto) Absolute Lymphs (auto) Absolute Monos (auto) Lymphocytes % Monocytes % Eosinophils % Basophils % Absolute Granulocytes Segmented Neutrophils Lymphocytes (Manual) Monocytes (Manual) Eosinophils (Manual) Basophils # Platelet Estimate RBC Morphology Puncture Site LEFT BRACHIAL pCO2 35 pO2 58 L Base Excess 1.4 O2 Saturation 89.0 L ABG pH 7.46 H ABG HCO3 24.9 ABG O2 Sat (Measured) 91.8 L Deondre Test NOT APPLICABLE A-a Gradient 397 a/A Ratio 0.13 Hemoglobin 16.4 Carboxyhemoglobin 2.1 Methemoglobin 1.0 L Potassium 4.4 Temperature 37.0 POC O2 Flow Rate 70 Sodium Chloride Carbon Dioxide Anion Gap BUN Creatinine Estimated GFR Glucose POC Glucometer 349 H 353 H Lactic Acid Calcium Magnesium Total Bilirubin AST ALT Alkaline Phosphatase Troponin I NT-Pro-B Natriuret Pep Serum Total Protein Albumin Procalcitonin Urine Color Urine Appearance Urine pH Ur Specific [place] Urine Protein Urine Ketones Urine Blood Urine Nitrite Urine Bilirubin Urine Urobilinogen Ur Leukocyte Esterase Urine WBC (Auto) Urine RBC (Auto) U Hyaline Cast (Auto) U Epithel Cells (Auto) Urine Bacteria (Auto) Urine Culture Reflexed Urine Glucose Influenza Type A Ag Influenza Type B Ag RSV (PCR) SARS-CoV-2 (PCR) 01/16/21 01/16/21 01/16/21 01:00 00:55 00:09 WBC RBC Hgb Hct MCV MCH MCHC RDW Plt Count MPV Gran % Eos # (Auto) Absolute Lymphs (auto) Absolute Monos (auto) Lymphocytes % Monocytes % Eosinophils % Basophils % Absolute Granulocytes Segmented Neutrophils Lymphocytes (Manual) Monocytes (Manual) Eosinophils (Manual) Basophils # Platelet Estimate RBC Morphology Puncture Site pCO2 pO2 Base Excess O2 Saturation ABG pH ABG HCO3 ABG O2 Sat (Measured) Deondre Test A-a Gradient a/A Ratio Hemoglobin Carboxyhemoglobin Methemoglobin Potassium 4.1 Temperature POC O2 Flow Rate Sodium 132 L Chloride 100 Carbon Dioxide 20 L Anion Gap 16.2 H BUN 19 H Creatinine 0.74 Estimated GFR > 60.0 Glucose 424 H POC Glucometer 360 H Lactic Acid Calcium 9.4 Magnesium 2.8 H Total Bilirubin AST ALT Alkaline Phosphatase Troponin I NT-Pro-B Natriuret Pep Serum Total Protein Albumin Procalcitonin Urine Color Urine Appearance Urine pH Ur Specific [place] Urine Protein Urine Ketones Urine Blood Urine Nitrite Urine Bilirubin Urine Urobilinogen Ur Leukocyte Esterase Urine WBC (Auto) Urine RBC (Auto) U Hyaline Cast (Auto) U Epithel Cells (Auto) Urine Bacteria (Auto) Urine Culture Reflexed Urine Glucose Influenza Type A Ag Influenza Type B Ag RSV (PCR) SARS-CoV-2 (PCR) 01/15/21 01/15/21 01/15/21 23:40 23:37 22:42 WBC RBC Hgb Hct MCV MCH MCHC RDW Plt Count MPV Gran % Eos # (Auto) Absolute Lymphs (auto) Absolute Monos (auto) Lymphocytes % Monocytes % Eosinophils % Basophils % Absolute Granulocytes Segmented Neutrophils Lymphocytes (Manual) Monocytes (Manual) Eosinophils (Manual) Basophils # Platelet Estimate RBC Morphology Puncture Site pCO2 pO2 Base Excess O2 Saturation ABG pH ABG HCO3 ABG O2 Sat (Measured) Deondre Test A-a Gradient a/A Ratio Hemoglobin Carboxyhemoglobin Methemoglobin Potassium Temperature POC O2 Flow Rate Sodium Chloride Carbon Dioxide Anion Gap BUN Creatinine Estimated GFR Glucose POC Glucometer 496 H Lactic Acid 3.6 H Calcium Magnesium Total Bilirubin AST ALT Alkaline Phosphatase Troponin I 0.404 H* NT-Pro-B Natriuret Pep Serum Total Protein Albumin Procalcitonin Urine Color Urine Appearance Urine pH Ur Specific [place] Urine Protein Urine Ketones Urine Blood Urine Nitrite Urine Bilirubin Urine Urobilinogen Ur Leukocyte Esterase Urine WBC (Auto) Urine RBC (Auto) U Hyaline Cast (Auto) U Epithel Cells (Auto) Urine Bacteria (Auto) Urine Culture Reflexed Urine Glucose Influenza Type A Ag Influenza Type B Ag RSV (PCR) SARS-CoV-2 (PCR) 01/15/21 01/15/21 01/15/21 22:25 20:47 20:23 WBC RBC Hgb Hct MCV MCH MCHC RDW Plt Count MPV Gran % Eos # (Auto) Absolute Lymphs (auto) Absolute Monos (auto) Lymphocytes % Monocytes % Eosinophils % Basophils % Absolute Granulocytes Segmented Neutrophils Lymphocytes (Manual) Monocytes (Manual) Eosinophils (Manual) Basophils # Platelet Estimate RBC Morphology Puncture Site pCO2 pO2 Base Excess O2 Saturation ABG pH ABG HCO3 ABG O2 Sat (Measured) Deondre Test A-a Gradient a/A Ratio Hemoglobin Carboxyhemoglobin Methemoglobin Potassium Temperature POC O2 Flow Rate Sodium Chloride Carbon Dioxide Anion Gap BUN Creatinine Estimated GFR Glucose POC Glucometer Lactic Acid Calcium Magnesium Total Bilirubin AST ALT Alkaline Phosphatase Troponin I NT-Pro-B Natriuret Pep Serum Total Protein Albumin Procalcitonin 0.060 Urine Color STRAW Urine Appearance CLEAR Urine pH 5.0 Ur Specific [place] 1.007 Urine Protein 30 Urine Ketones NEGATIVE Urine Blood SMALL Urine Nitrite NEGATIVE Urine Bilirubin NEGATIVE Urine Urobilinogen NEGATIVE Ur Leukocyte Esterase NEGATIVE Urine WBC (Auto) NONE Urine RBC (Auto) 3-5 U Hyaline Cast (Auto) 0-2 U Epithel Cells (Auto) NONE Urine Bacteria (Auto) NONE Urine Culture Reflexed ORDERED SEPARATELY Urine Glucose >=500 Influenza Type A Ag NEGATIVE Influenza Type B Ag NEGATIVE RSV (PCR) NEGATIVE SARS-CoV-2 (PCR) NEGATIVE 01/15/21 01/15/21 01/15/21 20:23 20:23 20:23 WBC RBC Hgb Hct MCV MCH MCHC RDW Plt Count MPV Gran % Eos # (Auto) Absolute Lymphs (auto) Absolute Monos (auto) Lymphocytes % Monocytes % Eosinophils % Basophils % Absolute Granulocytes Segmented Neutrophils Lymphocytes (Manual) Monocytes (Manual) Eosinophils (Manual) Basophils # Platelet Estimate RBC Morphology Puncture Site pCO2 pO2 Base Excess O2 Saturation ABG pH ABG HCO3 ABG O2 Sat (Measured) Deondre Test A-a Gradient a/A Ratio Hemoglobin Carboxyhemoglobin Methemoglobin Potassium 3.9 Temperature POC O2 Flow Rate Sodium 134 L Chloride 94 L Carbon Dioxide 22 Anion Gap 21.5 H BUN 18 H Creatinine 0.76 Estimated GFR > 60.0 Glucose 518 H* POC Glucometer Lactic Acid Calcium 9.6 Magnesium Total Bilirubin 0.60 AST 46 H ALT 21 Alkaline Phosphatase 198 H Troponin I 0.104 H* NT-Pro-B Natriuret Pep 1610 Serum Total Protein 8.4 H Albumin 4.5 Procalcitonin Urine Color Urine Appearance Urine pH Ur Specific [place] Urine Protein Urine Ketones Urine Blood Urine Nitrite Urine Bilirubin Urine Urobilinogen Ur Leukocyte Esterase Urine WBC (Auto) Urine RBC (Auto) U Hyaline Cast (Auto) U Epithel Cells (Auto) Urine Bacteria (Auto) Urine Culture Reflexed Urine Glucose Influenza Type A Ag Influenza Type B Ag RSV (PCR) SARS-CoV-2 (PCR) 01/15/21 01/15/21 20:23 20:11 WBC 14.0 H RBC 6.08 H Hgb 17.4 H Hct 54.1 H MCV 89.0 MCH 28.6 MCHC 32.2 RDW 13.0 Plt Count 351 MPV 10.5 Gran % Eos # (Auto) Absolute Lymphs (auto) Absolute Monos (auto) Lymphocytes % Monocytes % Eosinophils % Basophils % Absolute Granulocytes Segmented Neutrophils 43 Lymphocytes (Manual) 53 H Monocytes (Manual) 1 Eosinophils (Manual) 3 Basophils # Platelet Estimate NORMAL RBC Morphology NORMAL Puncture Site LEFT BRACHIAL pCO2 58 H pO2 58 L Base Excess -12.1 L O2 Saturation 79.7 L ABG pH 7.10 L* ABG HCO3 18.0 L ABG O2 Sat (Measured) 81.2 L Deondre Test NOT APPLICABLE A-a Gradient 583 a/A Ratio 0.09 Hemoglobin 17.2 Carboxyhemoglobin 1.3 Methemoglobin 0.6 L Potassium 3.7 Temperature 37.0 POC O2 Flow Rate 100 Sodium Chloride Carbon Dioxide Anion Gap BUN Creatinine Estimated GFR Glucose POC Glucometer Lactic Acid 8.3 H Calcium Magnesium Total Bilirubin AST ALT Alkaline Phosphatase Troponin I NT-Pro-B Natriuret Pep Serum Total Protein Albumin Procalcitonin Urine Color Urine Appearance Urine pH Ur Specific [place] Urine Protein Urine Ketones Urine Blood Urine Nitrite Urine Bilirubin Urine Urobilinogen Ur Leukocyte Esterase Urine WBC (Auto) Urine RBC (Auto) U Hyaline Cast (Auto) U Epithel Cells (Auto) Urine Bacteria (Auto) Urine Culture Reflexed Urine Glucose Influenza Type A Ag Influenza Type B Ag RSV (PCR) SARS-CoV-2 (PCR) Orders (Last 24 hours) Category Date Time Status Bedrest ROUTINE Activity 01/16/21 00:26 Active Up With Assistance ROUTINE Activity 01/16/21 00:26 Active Admit as Inpatient ROUTINE Care 01/16/21 00:26 Active Code Status Order ROUTINE Care 01/16/21 00:26 Active Fall Protocol Q1H Care 01/16/21 00:26 Active [place] [Catheter-Henderson [place]] STAT Care 01/15/21 21:25 Completed IV Care Q6H Care 01/16/21 00:26 Active Miscellaneous Nursing Order ROUTINE Care 01/16/21 00:50 Active Miscellaneous Nursing Order ROUTINE Care 01/16/21 00:50 Active Neuro Checks Q6H Care 01/16/21 00:26 Active POCT Glucose Check Q1H Care 01/16/21 01:00 Active Mihai Allan, Apply ROUTINE Care 01/16/21 00:26 Active Telemetry q6h Care 01/16/21 00:26 Active Weight,Daily 0600 Care 01/16/21 00:26 Active Infection Control Consult ROUTINE Cons 01/16/21 01:48 Active NPO Diet 01/16/21 00:54 Active CHEST 1 VIEW (PORTABLE) Stat Exams 01/15/21 19:43 Completed ABG [ARTERIAL BLOOD GASES] Stat Lab 01/15/21 20:11 Completed ABG [ARTERIAL BLOOD GASES] Stat Lab 01/16/21 01:33 Completed BMP Q4H Lab 01/16/21 01:00 Completed BMP Q4H Lab 01/16/21 09:00 Ordered BMP Q4H Lab 01/16/21 13:00 Ordered BMP Q4H Lab 01/16/21 17:00 Ordered BMP Q4H Lab 01/16/21 21:00 Ordered BNP [NT PRO BNP] Stat Lab 01/15/21 20:23 Completed CBC W DIFF AM.LAB Lab 01/16/21 06:17 Completed CBC W DIFF Stat Lab 01/15/21 20:23 Completed CMP AM.LAB Lab 01/16/21 06:17 Completed CMP Stat Lab 01/15/21 20:23 Completed CULTURE,URINE Stat Lab 01/15/21 20:47 Received Lactic Acid Routine Lab 01/15/21 23:40 Completed Lactic Acid Stat Lab 01/15/21 20:11 Completed MAGNESIUM Stat Lab 01/16/21 00:55 Completed Manual Differential NC Stat Lab 01/15/21 20:23 Completed POCT GLUCOSE Stat Lab 01/15/21 22:42 Completed POCT GLUCOSE Stat Lab 01/16/21 00:09 Completed POCT GLUCOSE Stat Lab 01/16/21 01:22 Completed POCT GLUCOSE Stat Lab 01/16/21 02:00 Completed POCT GLUCOSE Stat Lab 01/16/21 03:02 Completed POCT GLUCOSE Stat Lab 01/16/21 04:00 Received POCT GLUCOSE Stat Lab 01/16/21 04:01 Completed POCT GLUCOSE Stat Lab 01/16/21 05:06 Completed POCT GLUCOSE Stat Lab 01/16/21 06:01 Completed POCT GLUCOSE Stat Lab 01/16/21 07:01 Completed POCT GLUCOSE Stat Lab 01/16/21 08:10 Completed PROCALCITONIN Stat Lab 01/15/21 20:23 Completed TROPONIN Q3H Lab 01/15/21 20:23 Completed TROPONIN Q3H Lab 01/15/21 23:37 Completed TROPONIN Q3H Lab 01/16/21 06:17 Completed TROPONIN Q3H Lab 01/16/21 10:00 Ordered UA W/RFX UR CULTURE Stat Lab 01/15/21 20:47 Completed Acetaminophen 325 mg [Tylenol 325 mg] Med 01/16/21 00:26 Active 650 mg PO Q4H PRN PRN Albuterol/Ipratropium 3ml Neb* [DUONEB 0.5-3 MG/3 ml Med 01/15/21 19:46 Discontinued Neb] 3 ml IH .STK-MED ONE Albuterol/Ipratropium 3ml Neb* [DUONEB 0.5-3 MG/3 ml Med 01/16/21 01:00 Active Neb] 3 ml IH Q6HRT Albuterol/Ipratropium 3ml Neb* [DUONEB 0.5-3 MG/3 ml Med 01/15/21 20:01 Discontinued Neb] 3 ml IH STAT ONE Aspirin 81 gm Chew [Baby Aspirin 81 mg Chew] Med 01/15/21 21:25 Discontinued 324 mg .ROUTE .STK-MED ONE Aspirin 81 gm Chew [Baby Aspirin 81 mg Chew] Med 01/15/21 21:23 Discontinued 324 mg PO STAT ONE Enoxaparin Sodium [Enoxaparin Sodium] Med 01/16/21 10:00 Active 40 mg SQ DAILY Furosemide 100 mg/10 ml [Furosemide 100mg/10 ml Vial Med 01/15/21 19:41 Discontinued ] 100 mg .ROUTE .STK-MED ONE Furosemide 100 mg/10 ml [Furosemide 100mg/10 ml Vial Med 01/15/21 20:01 Discontinued ] 60 mg IV STAT ONE Furosemide 20 mg/2 ml [Lasix 20 MG/2 ML] Med 01/16/21 21:05 Once 20 mg IV STAT ONE Furosemide 40 mg/4 ml [Lasix 40 MG/4 ML] Med 01/15/21 20:03 Discontinued 40 mg .ROUTE .STK-MED ONE Hydrocodone/Acetaminophen [Hydrocodone-Acetamin 2.5-108 Med 01/15/21 19:57 Discontinued /5 ml Solution] 10 ml .ROUTE .STK-MED ONE Hydrocodone/Acetaminophen [Hydrocodone-Acetamin 2.5-108 Med 01/15/21 20:14 Discontinued /5 ml Solution] 10 ml PO STAT STA Insulin Regular, Human [Humulin R] Med 01/15/21 21:49 Discontinued 1 unit .ROUTE .STK-MED ONE Insulin Regular, Human [Humulin R] Med 01/15/21 21:35 Discontinued 10 unit .ROUTE .STK-MED ONE Insulin Regular, Human [Humulin R] Med 01/15/21 21:25 Discontinued 10 unit IV STAT ONE Magnesium Sulfate 1 gm/100 ml* [Magnesium 1 Gm / 100 Ml Med 01/15/21 21:45 Discontinued D5W] 100 ml IV Q1H Methylprednis Sod Succ 125 mg* [solu-MEDROL] Med 01/15/21 19:45 Discontinued 125 mg .ROUTE .STK-MED ONE Methylprednis Sod Succ 125 mg* [solu-MEDROL] 125 mg Med 01/15/21 19:59 Discontinued Water For Injection,Sterile [Sterile H2O 10 ml] 2 ml IV STAT Morphine Sulfate 4 mg Inj Med 01/15/21 22:12 Discontinued 4 mg .ROUTE .STK-MED ONE NaCl 0.9% 1000 ml + KCl 20 Meq [Sodium Chloride 0.9% W/ Med 01/16/21 00:26 Active 20 mEq KCl/LITER] 1,000 ml IV 100 mls/hr NaCl 0.9% 100Ml [Sodium Chloride 0.9% 100 ML BAG] 100 Med 01/15/21 21:59 Disco ntinued ml Insulin Regular, Human [Humulin R] 100 unit IV 0.1 unit/kg/hr NaCl 0.9% 100Ml [Sodium Chloride 0.9% 100 ML BAG] 100 Med 01/15/21 22:02 Active ml Insulin Regular, Human [Humulin R] 100 unit IV 5 unit/hr NaCl 0.9% 100Ml [Sodium Chloride 0.9% 100 ML BAG] 100 Med 01/15/21 21:49 Discontinued ml .ROUTE UD Nitroglycerin 0.4 mg (Ed) [Nitrostat 0.4 MG (ED)] Med 01/15/21 19:44 Discontinued 0.4 mg SL .STK-MED ONE Nitroglycerin 0.4 mg (Ed) [Nitrostat 0.4 MG (ED)] Med 01/15/21 20:00 Discontinued 0.4 mg SL STAT ONE Nitroglycerin 2 %Ointment [Nitro-Bid 2% Ud Packets Med 01/15/21 19:44 Discontinued *] 1 gm .ROUTE .STK-MED ONE Nitroglycerin 2 %Ointment [Nitro-Bid 2% Ud Packets Med 01/15/21 20:00 Discontinued *] 1 gm TOP STAT ONE Nitroglycerin/D5w 250 ml [Ntg 0.2MG/Ml in D5W GLASS Med 01/15/21 21:05 Active *] 250 ml IV 5 mcg/min Nitroglycerin/D5w 250 ml [Ntg 0.2MG/Ml in D5W GLASS Med 01/15/21 20:00 Discontinued *] 250 ml IV UD Ondansetron HCl 4 mg/2 ml [Zofran 4 MG/2 ML VIAL] Med 01/15/21 19:47 Discontinued 4 mg .ROUTE .STK-MED ONE Ondansetron HCl 4 mg/2 ml [Zofran 4 MG/2 ML VIAL] Med 01/15/21 20:02 Discontinued 4 mg IV STAT ONE Pantoprazole 40 mg [Protonix 40 mg IV] Med 01/16/21 10:00 Active 40 mg IV Q24H10 Potassium Bicarbonate 25 MEQ [K-Lyte 25 Meq] Med 01/15/21 21:35 Discontinued 50 meq .ROUTE .STK-MED ONE Potassium Bicarbonate 25 MEQ [K-Lyte 25 Meq] Med 01/15/21 21:26 Discontinued 50 meq PO STAT ONE BiPap/CPAP ROUTINE RT 01/15/21 20:34 Completed Oxygen Oxymizer LPM 9 lpm RT 01/16/21 00:58 Active Respiratory Therapy Assessment DAILY RT 01/15/21 21:28 Active Patient Care Notes (Last 24 hours) 01/15/21 21:33 Respiratory Note by Brook Lin Initial attempt at applying Bipap was refused by patient. Condition worsened and patient became compliant. Tolerated well. Patient became nauseas and was then placed on 10L oxymizer. Tolerating well. SpO2 96% on oxymizer and condition has improved. 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
[2021-01-16] MEDS ORDERED: Glutose 15 GM ORAL GEL PO PRN (09:06)
[2021-01-16] MEDS ORDERED: D50W 50 ml Abboject IV PRN (09:06)
[2021-01-16] MEDS ORDERED: GlucaGen 1 MG IM PRN (09:06)
[2021-01-16 09:35] LABS: ANION GAP 14.4 MEQ/L (5-15); BLOOD UREA NITROGEN 25 mg/dL (7-17); CHLORIDE 102 mmol/L (98-107); Calcium 9.5 mg/dL (8.4-10.2); Carbon Dioxide 24 mmol/L (22-30); Creatinine 1 0.71 mg/dL (0.52-1.04); EST GLOMERULAR FILTRATION RATE > 60.0 ML/MIN; Glucose 178 mg/dL (74-106); SODIUM 136 mmol/L (137-145)
[2021-01-16] MEDS ORDERED: PROTONIX 40 MG IV IV SCH (10:00)
[2021-01-16] MEDS ORDERED: ENOXAPARIN SODIUM SQ SCH (10:00)
[2021-01-16] MEDS ORDERED: Coreg 3.125 MG PO SCH (12:00)
[2021-01-16] MEDS ORDERED: Ocuvite Tablet PO SCH (12:00)
[2021-01-16] MEDS ORDERED: Cozaar 50 MG PO SCH (12:00)
[2021-01-16] MEDS: HUMALOG SQ PRN ×2 (13:13→17:42)
[2021-01-16 14:19] LABS: ANION GAP 14.8 MEQ/L (5-15); BLOOD UREA NITROGEN 27 mg/dL (7-17); CHLORIDE 100 mmol/L (98-107); Calcium 9.3 mg/dL (8.4-10.2); Carbon Dioxide 24 mmol/L (22-30); Creatinine 1 0.74 mg/dL (0.52-1.04); EST GLOMERULAR FILTRATION RATE > 60.0 ML/MIN; Glucose 233 mg/dL (74-106); Potassium 4.1 mmol/L (3.5-5.1); SODIUM 135 mmol/L (137-145)
[2021-01-16 17:40] LABS: ANION GAP 13.1 MEQ/L (5-15); BLOOD UREA NITROGEN 27 mg/dL (7-17); CHLORIDE 100 mmol/L (98-107); Calcium 8.8 mg/dL (8.4-10.2); Carbon Dioxide 24 mmol/L (22-30); Creatinine 1 0.75 mg/dL (0.52-1.04); EST GLOMERULAR FILTRATION RATE > 60.0 ML/MIN; Glucose 270 mg/dL (74-106); SODIUM 134 mmol/L (137-145)
[2021-01-16 18:31] VITALS: BP 107/60; PULSE 119
[2021-01-16] MEDS ORDERED: Lasix 20 MG/2 ML IV ONE (21:05)
[2021-01-16] MEDS ORDERED: Klor Con 10 MEQ PO SCH (22:00)
[2021-01-17] MEDS ORDERED: NON-FORMULARY ITEM (Losartan Potassium [Losartan Potassium] 25 MG Tablet) PO SCH (10:00)
[2021-01-17] MEDS ORDERED: NON-FORMULARY ITEM (Vit A/Vit C/Vit E/Zinc/Copper [Preservision Areds Tablet] 1 EACH Table PO SCH (10:00)
--- NOTE | 2021-01-17 18:24 | PCM.DS ---
Discharge Summary Date of Admission: 01/16/21 00:24 Admitting Physician: SANDER WHITE Primary Care Provider: THERESA BEAUCHAMP Allergies Allergies fentanyl Allergy (Unknown, Verified 01/16/21 00:00) glycopyrrolate [From Robinul] Allergy (Unknown, Verified 01/16/21 00:00) lidocaine Allergy (Unknown, Verified 01/16/21 00:00) propofol Allergy (Unknown, Verified 01/16/21 00:00) rocuronium bromide [From Zemuron] Allergy (Unknown, Verified 01/16/21 00:00) Antihistamines - Alkylamine Adverse Reaction (Unknown, Verified 01/16/21 00:00) metoprolol Adverse Reaction (Unknown, Verified 01/16/21 00:00) Hospital Summary - Hospital Course Hospital Course: Chief Complaint Diagnosis shortness of breath for 4 hours Allergies Allergy/AdvReac Type Severity Reaction Status Date / Time fentanyl Allergy Unknown Verified 01/16/21 00:00 glycopyrrolate [From Robinul] Allergy Unknown Verified 01/16/21 00:00 lidocaine Allergy Unknown Verified 01/16/21 00:00 propofol Allergy Unknown Verified 01/16/21 00:00 rocuronium bromide Allergy Unknown Verified 01/16/21 00:00 [From Zemuron] Antihistamines - Alkylamine AdvReac Unknown Verified 01/16/21 00:00 metoprolol AdvReac Unknown Verified 01/16/21 00:00 Home Medications Medication Instructions Recorded Confirmed Last Taken Type Carvedilol 3.125 mg [Coreg 3.125 mg PO BID 01/16/21 01/16/21 01/15/21 History 3.125 MG] Cinnamon Bark [Cinnamon] 1 tab PO QAM 01/16/21 01/16/21 Unknown History Furosemide [Lasix] 20 mg PO BID 01/16/21 01/16/21 01/15/21 History Losartan Potassium 25 mg PO DAILY 01/16/21 01/16/21 01/15/21 History Potassium Chloride 10 meq PO HS 01/16/21 01/16/21 01/15/21 History Vit A/Vit C/Vit E/Zinc/Copper 2 tab PO QAM 01/16/21 01/16/21 01/15/21 History [Preservision Areds Tablet] Current Medications Discontinued Medications Generic Name Dose Route Start Last Admin Trade Name Sammie PRN Reason Stop Dose Admin Acetaminophen 650 mg 01/16/21 00:26 Acetaminophen 325 Mg Tablet PO 02/15/21 00:25 Q4H PRN PRN PAIN AND/OR FEVER Hydrocodone Bitart/Acetaminophen Confirm 01/15/21 19:57 Hydrocodone/Acetaminophen 5 Ml Udcup Administered 01/15/21 19:58 Dose 10 ml .ROUTE .STK-MED ONE Hydrocodone Bitart/Acetaminophen 10 ml 01/15/21 20:14 01/15/21 20:16 Hydrocodone/Acetaminophen 5 Ml Udcup PO 01/15/21 20:15 10 ml STAT STA Administration Albuterol/Ipratropium Confirm 01/15/21 19:46 Ipratropium/Albuterol Sulfate 3 Ml Ampul.Neb Administered 01/15/21 19:47 Dose 3 ml IH .STK-MED ONE Albuterol/Ipratropium 3 ml 01/15/21 20:01 01/15/21 19:45 Ipratropium/Albuterol Sulfate 3 Ml Ampul.Neb IH 01/15/21 20:02 3 ml STAT ONE Administration Albuterol/Ipratropium 3 ml 01/16/21 01:00 01/16/21 12:03 Ipratropium/Albuterol Sulfate 3 Ml Ampul.Neb 02/15/21 00:59 3 ml Q6HRT MADAY Administration Aspirin 324 mg 01/15/21 21:23 01/15/21 21:32 Aspirin 81 Mg Tab.Chew PO 01/15/21 21:24 324 mg STAT ONE Administration Aspirin Confirm 01/15/21 21:25 Aspirin 81 Mg Tab.Chew Administered 01/15/21 21:26 Dose 324 mg .ROUTE .STK-MED ONE Carvedilol 3.125 mg 01/16/21 12:00 01/16/21 12:40 Carvedilol 3.125 Mg Tablet PO 02/15/21 11:59 3.125 mg BID MADAY Administration Methylprednisolone Sodium 0 mg 01/15/21 19:59 01/15/21 19:50 Succinate 125 mg/ Sterile IV 01/15/21 20:00 125 mg Water 2 ml STAT ONE Administration Dextrose 25 ml 01/16/21 09:06 Dextrose 50%-Water 50 Ml Abboject IV 02/15/21 09:05 PRN PRN HYPOGLYCEMIA Enoxaparin Sodium 40 mg 01/16/21 10:00 01/16/21 12:38 Enoxaparin Sodium 40 Mg/0.4 Ml Syringe SQ 02/15/21 09:59 40 mg DAILY MADAY Administration Furosemide Confirm 01/15/21 19:41 Furosemide 100 Mg/10 Ml Vial Administered 01/15/21 19:42 Dose 100 mg .ROUTE .STK-MED ONE Furosemide 60 mg 01/15/21 20:01 01/15/21 19:50 Furosemide 100 Mg/10 Ml Vial IV 01/15/21 20:02 60 mg STAT ONE Administration Furosemide Confirm 01/15/21 20:03 Furosemide 40 Mg/4 Ml Vial Administered 01/15/21 20:04 Dose 40 mg .ROUTE .STK-MED ONE Furosemide 20 mg 01/16/21 21:05 01/15/21 21:27 Furosemide 20 Mg/Vial IV 01/16/21 21:06 20 mg STAT ONE Administration Glucagon 1 mg 01/16/21 09:06 Glucagon 1 Mg/Vial Vial IM 02/15/21 09:05 PRN PRN HYPOGLYCEMIA Glucose 15 gm 01/16/21 09:06 Dextrose 15 Gm Gel PO 02/15/21 09:05 PRN PRN HYPOGLYCEMIA Nitroglycerin/Dextrose Confirm 01/15/21 20:00 Ntg 0.2mg/Ml In D5w Glass Administered 01/15/21 20:01 Dose 250 mls @ ud IV .STK-MED ONE Nitroglycerin/Dextrose 250 mls @ 1.5 mls/hr 01/15/21 21:05 01/16/21 04:06 Ntg 0.2mg/Ml In D5w Glass IV 02/14/21 21:04 16.67 mcg/min .Q24H PRN 5 mls/hr CHEST PAIN Titration Protocol 5 MCG/MIN Magnesium Sulfate/Dextrose 100 mls @ 100 mls/hr 01/15/21 21:45 01/15/21 22:43 Magnesium 1 Gm / 100 Ml D5w IV 01/15/21 23:44 100 mls/hr Q1H MADAY Administration Sodium Chloride Confirm 01/15/21 21:49 Sodium Chloride 0.9% 100 Ml Bag Administered 01/15/21 21:50 Dose 100 mls @ ud .ROUTE .STK-MED ONE Insulin Human Regular 100 unit 100 mls @ 7.98 mls/hr 01/15/21 21:59 / Sodium Chloride IV 02/14/21 21:58 .[id number] PRN DKA/HYPERGLYCEMIA Protocol 0.1 UNIT/KG/HR Insulin Human Regular 100 unit 100 mls @ 5 mls/hr 01/15/21 22:02 01/16/21 08:19 / Sodium Chloride IV 02/14/21 21:58 5 unit/hr .Q20H PRN 5 mls/hr DKA/HYPERGLYCEMIA Infusion 5 UNIT/HR Potassium Chloride/Sodium Chloride 1,000 mls @ 100 mls/hr 01/16/21 00:26 Sodium Chloride 0.9% W/ 20 Meq Kcl/Liter IV 02/15/21 00:25 .Q10H MADAY Insulin Human Lispro 0 unit 01/16/21 10:27 01/16/21 17:42 Insulin Lispro 1 Unit SQ 02/15/21 10:26 7 unit UD PRN Administration HYPERGLYCEMIA Insulin Human Regular 10 unit 01/15/21 21:25 01/15/21 21:36 Insulin Regular, Human 1 Unit IV 01/15/21 21:26 10 unit STAT ONE Administration Insulin Human Regular Confirm 01/15/21 21:35 Insulin Regular, Human 1 Unit Administered 01/15/21 21:36 Dose 10 unit .ROUTE .STK-MED ONE Insulin Human Regular Confirm 01/15/21 21:49 Insulin Regular, Human 1 Unit Administered 01/15/21 21:50 Dose 1 unit .ROUTE .STK-MED ONE Losartan Potassium 25 mg 01/16/21 12:00 01/16/21 12:40 Losartan Potassium 50 Mg Tablet PO 02/15/21 11:59 Not Given DAILY MADAY Methylprednisolone Sodium Succinate Confirm 01/15/21 19:45 Methylprednis Sod Succ 125 Mg/2 Ml Vial Administered 01/15/21 19:46 Dose 125 mg .ROUTE .STK-MED ONE Multivitamins/Minerals 2 tab 01/16/21 12:00 01/16/21 12:40 Beta-Carotene(A) W-C And E/Min 1 Tab Tablet PO 02/15/21 11:59 2 tab QAM MADAY Administration Nitroglycerin Confirm 01/15/21 19:44 Nitroglycerin 1 Gm Packet Administered 01/15/21 19:45 Dose 1 gm .ROUTE .STK-MED ONE Nitroglycerin Confirm 01/15/21 19:44 Nitroglycerin 0.4 Mg (Ed) 0.4 Mg Tab.Subl Administered 01/15/21 19:45 Dose 0.4 mg SL .STK-MED ONE Nitroglycerin 0.4 mg 01/15/21 20:00 01/15/21 19:49 Nitroglycerin 0.4 Mg (Ed) 0.4 Mg Tab.Subl SL 01/15/21 20:01 0.4 mg STAT ONE Administration Nitroglycerin 1 gm 01/15/21 20:00 01/15/21 19:55 Nitroglycerin 1 Gm Packet TOP 01/15/21 20:01 1 gm STAT ONE Administration Ondansetron HCl Confirm 01/15/21 19:47 Ondansetron Hcl 4 Mg/2 Ml Vial Administered 01/15/21 19:48 Dose 4 mg .ROUTE .STK-MED ONE Ondansetron HCl 4 mg 01/15/21 20:02 01/15/21 19:50 Ondansetron Hcl 4 Mg/2 Ml Vial IV 01/15/21 20:03 4 mg STAT ONE Administration Pantoprazole Sodium 40 mg 01/16/21 10:00 01/16/21 11:32 Pantoprazole 40 Mg Vial IV 02/15/21 09:59 40 mg Q24H10 MADAY Administration Potassium Bicarbonate 50 meq 01/15/21 21:26 01/15/21 21:37 Potassium Bicarbonate 25 Meq Tab PO 01/15/21 21:27 50 meq STAT ONE Administration Potassium Bicarbonate Confirm 01/15/21 21:35 Potassium Bicarbonate 25 Meq Tab Administered 01/15/21 21:36 Dose 50 meq .ROUTE .STK-MED ONE Potassium Chloride 10 meq 01/16/21 22:00 Potassium Chloride 10 Meq Tablet PO 02/15/21 21:59 HS MADAY Intake & Output (Last 24 hours) 01/15/21 01/16/21 01/17/21 01/18/21 11:59 11:59 11:59 11:59 Intake Total 0 Balance 0 Weight 76.3 kg Microbiology Results (Last 24 hours) 01/15/21 20:47 Catherized Urine Culture - Final NO GROWTH Orders (Last 24 hours) Category Date Time Status Furosemide 20 mg/2 ml [Lasix 20 MG/2 ML] Med 01/16/21 21:05 Discontinued 20 mg IV STAT ONE Potassium Chloride 10 Meq Tab* [Klor Con 10 MEQ] Med 01/16/21 22:00 Discontinued 10 meq PO HS - Vitals & Intake/Output Vital Signs: Vital Signs Temperature 98.9 F 01/16/21 16:00 Pulse Rate 119 H 01/16/21 16:00 Respiratory Rate 19 01/16/21 16:00 Blood Pressure 107/60 01/16/21 16:00 O2 Sat by Pulse Oximetry 95 01/16/21 16:00 Intake & Output: Intake & Output 01/15/21 01/16/21 01/17/21 01/18/21 11:59 11:59 11:59 11:59 Intake Total 0 Balance 0 Weight 76.3 kg - Lab Result Diagrams: 01/16/21 06:17 01/16/21 16:45 Micro Results-Entire Visit: Microbiology 01/15/21 20:47 Urine Culture - Final Catherized NO GROWTH - Radiology Exams Ordered Rad Exams-Entire Visit: Radiology Procedures Category Date Time Status CHEST 1 VIEW (PORTABLE) Stat Exams 01/15/21 19:43 Completed - Procedures and Test Procedures and Tests throughout Hospitalization: Therapy Orders & Screens 01/15/21 20:34 BiPap/CPAP ROUTINE Comment: 01/15/21 21:28 Respiratory Therapy Assessment DAILY Comment: 01/16/21 00:58 Oxygen Oxymizer LPM 9 lpm Comment: Diagnosis: Acute hypoxic and hypercapnic respiratory failure Discharge Exam General Appearance: no apparent distress, alert Neurologic Exam: alert, oriented x 3, cooperative, normal mood/affect, nml c erebellar function, sensation nml, No motor deficits Eye Exam: PERRL, EOMI, eyes nml inspection Ears, Nose, Throat Exam: normal ENT inspection, pharynx normal, moist mucous membranes Neck Exam: normal inspection, non-tender, supple, full range of motion Respiratory Exam: normal breath sounds, lungs clear, No respiratory distress Cardiovascular Exam: regular rate/rhythm, normal heart sounds Gastrointestinal/Abdomen Exam: soft, No tenderness, No mass Pelvic Exam: deferred Rectal Exam: deferred Back Exam: normal inspection, normal range of motion, No CVA tenderness, No ve rtebral tenderness Extremity Exam: normal inspection, normal range of motion Skin Exam: normal color, warm, dry Final Diagnosis/Problem List - Final Discharge Diagnosis/Problem (1) Respiratory acidosis with metabolic acidosis Status: Resolved Code(s): E87.4 - MIXED DISORDER OF ACID-BASE BALANCE (2) CHF exacerbation Status: Resolved Code(s): I50.9 - HEART FAILURE, UNSPECIFIED (3) DKA (diabetic ketoacidosis) Status: Resolved Code(s): E11.10 - TYPE 2 DIABETES MELLITUS WITH KETOACIDOSIS WITHOUT COMA - Discharge Discharge Date: 01/16/21 Disposition: Home, Self-Care Condition: Stable Prescriptions: No Action Vitamin E 0 unit PO DAILY Cholecalciferol (Vitamin D3) [Vitamin D] 0 mg PO DAILY Insulin Lispro [Humalog] 20 unit SQ BID Insulin Glargine,Hum.rec.anlog [Lantus] 30 unit SQ BID Cyanocobalamin (Vitamin B-12) [Vitamin B-12] 0 mcg PO DAILY Carvedilol 3.125 mg [Coreg 3.125 MG] 3.125 mg PO BID Losartan Potassium 25 mg PO DAILY Furosemide [Lasix] 20 mg PO BID Potassium Chloride 10 meq PO HS Vit A/Vit C/Vit E/Zinc/Copper [Preservision Areds Tablet] 2 tab PO QAM Cinnamon Bark [Cinnamon] 1 tab PO QAM Instructions: Diabetic Ketoacidosis (DC) Additional Instructions: Please call tomorrow to make a one week followup with your family doctor.
[2021-01-19 08:18] VITALS: O2SAT 94
== END 2021-01-16 19:10 | disposition home or self-care (01) | DRG 640 ==
LOC: ED 19:27 → ICU 01-16 00:24
PROVIDERS: ADMIT General Practice; ATTEND Family Medicine
DX: E87.4 Mixed disorder of acid-base balance (principal); E11.10 Type 2 diabetes mellitus with ketoacidosis without coma; J96.01 Acute respiratory failure with hypoxia; J96.02 Acute respiratory failure with hypercapnia; I11.0 Hypertensive heart disease with heart failure; I50.9 Heart failure, unspecified; R07.9 Chest pain, unspecified; E78.5 Hyperlipidemia, unspecified; Z79.899 Other long term (current) drug therapy; Z20.828 Contact with and (suspected) exposure to other viral communicable diseases
CPT/HCPCS: 0241U; 36000; 36415; 36600; 51702; 71045; 80048; 80053; 81001; 82375; 82803; 82947; 83605; 83735; 83880; 84145; 84484; 85025; 87040; 87086; 94002; 94640; 96374; 96375; 96376; 99285; 99291; J1650; J1815; J1817; J1940; J2270; J2405; J2930; J3475; A9270-GY

== ENCOUNTER 2021-07-05 14:59 | Emergency (ER) | payer MEDICARE ==
--- NOTE | 2021-07-05 15:11 | ERPHSYRPT ---
- History of Present Illness Time Seen by Provider: 07/05/21 15:10 Source: patient Exam Limitations: no limitations Patient Subjective Stated Complaint: PT states "I was just sitting there and I got dizzy and it felt like my eyes would not focus." Triage Nursing Assessment: PT presented alert and oriented aX3, skin pwd. pt ambulates with an upright steady gai, able to speak in clear full sentences pt in no apparent respiratory distress. Physician History: Patient is a 75-year-old female presents to emergency room via EMS for evaluation of dizziness and blurred vision. Patient states she was at home when symptoms started. Patient has been feeling unwell for the past couple days. No syncope. No seizure. Patient denies chest pain. Patient advised that she had a significant cardiac history. Patient states she is got "2 vessels that are 100% occluded and 2 vessels that are occluded but have naturally bypassed". Patient is currently asymptomatic. No active chest pain. Patient conversant well-appearing in no acute distress. Son at bedside. They voiced no other complaints or concerns at this time. Timing/Duration: today Severity: moderate Modifying Factors: Improves With: nothing Associated Symptoms: denies symptoms Allergies/Adverse Reactions: vancomycin Allergy (Intermediate, Verified 07/05/21 15:11) Swelling fentanyl Allergy (Unknown, Verified 01/16/21 00:00) glycopyrrolate [From Robinul] Allergy (Unknown, Verified 01/16/21 00:00) propofol Allergy (Unknown, Verified 01/16/21 00:00) rocuronium bromide [From Zemuron] Allergy (Unknown, Verified 01/16/21 00:00) Antihistamines - Alkylamine Adverse Reaction (Unknown, Verified 01/16/21 00:00) metoprolol Adverse Reaction (Unknown, Verified 01/16/21 00:00) Home Medications: Cholecalciferol (Vitamin D3) [Vitamin D] 0 mg PO DAILY 10/16/13 [History] Cyanocobalamin (Vitamin B-12) [Vitamin B-12] 0 mcg PO DAILY 10/16/13 [History] Insulin Glargine,Hum.rec.anlog [Lantus] 30 unit SQ BID 10/16/13 [History] Insulin Lispro [Humalog] 20 unit SQ BID 10/16/13 [History] Vitamin E 0 unit PO DAILY 10/16/13 [History] Carvedilol 3.125 mg [Coreg 3.125 MG] 3.125 mg PO BID 01/16/21 [History] Furosemide [Lasix] 20 mg PO BID 01/16/21 [History] Losartan Potassium 25 mg PO DAILY 01/16/21 [History] Potassium Chloride 10 meq PO HS 01/16/21 [History] Magnesium Oxide 07/05/21 [History] Metformin HCl 850 mg [Glucophage 850 MG] 850 mg PO BID 07/05/21 [History] Hx Tetanus, Diphtheria Vaccination/Date Given: No Hx Influenza Vaccination/Date Given: No Hx Pneumococcal Vaccination/Date Given: Yes Immunizations Up to Date: Yes Travel Risk - International Travel Have you traveled outside of the country in past 3 weeks: No - Coronavirus Screening Are you exhibiting any of the following symptoms?: No Close contact with a COVID-19 positive Pt in past 14-21 Days: No - Vaccine Status Have you recieved a Covid-19 vaccination: No - Review of Systems Constitutional: No Symptoms, No Fever, No Chills Eyes: No Symptoms Ears, Nose, & Throat: No Symptoms Respiratory: No Symptoms, No Cough, No Dyspnea Cardiac: No Symptoms, No Chest Pain, No Edema, No Syncope Abdominal/Gastrointestinal: No Symptoms, No Abdominal Pain, No Nausea, No Vomiting, No Diarrhea Genitourinary Symptoms: No Symptoms, No Dysuria Musculoskeletal: No Symptoms, No Back Pain, No Neck Pain Skin: No Symptoms, No Rash Neurological: No Symptoms, No Dizziness, No Focal Weakness, No Sensory Changes Psychological: No Symptoms Endocrine: No Symptoms Hematologic/Lymphatic: No Symptoms Immunological/Allergic: No Symptoms All Other Systems: Reviewed and Negative - Past Medical History Pertinent Past Medical History: Yes Neurological History: No Pertinent History ENT History: Cataracts Cardiac History: High Cholesterol, Other Respiratory History: No Pertinent History Endocrine Medical History: Diabetes Type II Musculoskeletal History: Arthritis GI Medical History: No Pertinent History History: No Pertinent History Psycho-Social History: No Pertinent History Female Reproductive Disorders: Breast Cancer Other Medical History: breast cax2. pt unable to answer questions about medical hx at this time - Past Surgical History Past Surgical History: Yes Cardiac: No Pertinent History Gastrointestinal: Cholecystectomy Genitourinary: No Pertinent History Musculoskeletal: Orthopedic Surgery Female Surgical History: Hysterectomy, Mastectomy Other Surgical History: surgical hx obtained from chart - Social History Smoking Status: Never smoker Exposure to second hand smoke: No Drug Use: none Patient Lives Alone: No - Nursing Vital Signs Nursing Vital Signs: Initial Vital Signs Temperature 98.4 F 07/05/21 15:01 Pulse Rate 90 07/05/21 15:01 Respiratory Rate 20 07/05/21 15:01 Blood Pressure 151/96 07/05/21 15:01 Pain Scale Pain Intensity 0 - Physical Exam General Appearance: no apparent distress, alert Eye Exam: PERRL/EOMI, eyes nml inspection Ears, Nose, Throat Exam: normal ENT inspection, TMs normal, pharynx normal, moist mucous membranes Neck Exam: normal inspection, non-tender, supple, full range of motion Respiratory Exam: normal breath sounds, lungs clear, airway intact, No chest tenderness, No respiratory distress Cardiovascular Exam: regular rate/rhythm, normal heart sounds, normal peripheral pulses Gastrointestinal/Abdomen Exam: soft, normal bowel sounds, No tenderness, No mass Back Exam: normal inspection, normal range of motion, No CVA tenderness, No vertebral tenderness Extremity Exam: normal inspection, normal range of motion, pelvis stable Neurologic Exam: alert, oriented x 3, cooperative, normal mood/affect, sensation nml, No motor deficits Skin Exam: normal color, warm, dry, No rash Lymphatic Exam: No adenopathy SpO2 Interpretation: normal SpO2: 98 O2 Delivery: Room Air - Course Nursing assessment & vital signs reviewed: Yes EKG Interpreted by Me: RATE (90), Sinus Rhythm, NORMAL AXIS, NORMAL INTERVALS - Radiology Exams Chest X-ray Interpretation: Teleradiologist Report (Nonacute chest with chronic features) - CT Exams Head CT Interpretation: Tele-radiologist Report (Nonacute senile brain) Ordered Tests: Active Orders 24 hr Category Date Time Status Stave Grader STAT Care 07/05/21 15:04 Active EKG-ER Only STAT Care 07/05/21 15:03 Active IV Insertion STAT Care 07/05/21 15:03 Active Pulse Oximetry (ED) STAT Care 07/05/21 15:03 Active CHEST 1 VIEW (PORTABLE) Stat Exams 07/05/21 15:18 Completed HEAD WITHOUT CONTRAST [CT] Stat Exams 07/05/21 15:06 Completed CBC W DIFF Stat Lab 07/05/21 14:20 Completed CMP Stat Lab 07/05/21 14:20 Completed MAGNESIUM Stat Lab 07/05/21 14:20 Completed NT PRO BNP Stat Lab 07/05/21 14:20 Completed TROPONIN Q3H Lab 07/05/21 14:20 Completed TROPONIN Q3H Lab 07/05/21 18:15 Ordered TROPONIN Q3H Lab 07/05/21 21:15 Ordered TROPONIN Q3H Lab 07/06/21 00:15 Ordered TROPONIN Q3H Lab 07/06/21 03:15 Ordered UA W/RFX CULTURE Stat Lab 07/05/21 16:02 Received Medication Summary Generic Name Dose Route Start Last Admin Trade Name Freq PRN Reason Stop Dose Admin Nitroglycerin/Dextrose 250 mls @ 1.5 mls/hr 07/05/21 16:40 Ntg 0.2mg/Ml In D5w Glass IV 08/04/21 16:39 .Q24H PRN CHEST PAIN Protocol 5 MCG/MIN Lab/Rad Data: Laboratory Result Diagrams 07/05/21 14:20 07/05/21 14:20 Laboratory Results 07/05/21 07/05/21 07/05/21 Range/Units 14:20 14:20 14:20 WBC 9.0 (4.0-10.5) x10^3/uL RBC 4.85 (4.1-5.4) x10^6/uL Hgb 14.2 (12.0-16.0) g/dL Hct 42.0 (35-47) % MCV 86.6 (78-100) fL MCH 29.3 (26-32) pg MCHC 33.8 (32-36) g/dL RDW 13.3 (11.5-14.0) % Plt Count 234 (150-450) x10^3/uL MPV 9.2 (7.5-11.0) fL Gran % 61.5 (36.0-66.0) % Immature Gran % (Auto) 0.7 H (0.00-0.4) % Nucleat RBC Rel Count 0.0 (0.00-0.1) % Eos # (Auto) 0.21 (0-0.5) x10^3/uL Immature Gran # (Auto) 0.06 H (0.00-0.03) x10^3u/L Absolute Lymphs (auto) 2.34 (1.0-4.6) x10^3/uL Absolute Monos (auto) 0.82 (0.0-1.3) x10^3/uL Absolute Nucleated RBC 0.00 (0.00-0.01) x10^3u/L Lymphocytes % 26.1 (24.0-44.0) % Monocytes % 9.1 (0.0-12.0) % Eosinophils % 2.3 (0.00-5.0) % Basophils % 0.3 (0.0-0.4) % Absolute Granulocytes 5.52 (1.4-6.9) x10^3/uL Basophils # 0.03 (0-0.4) x10^3/uL Sodium 136 L (137-145) mmol/L Potassium 3.9 (3.5-5.1) mmol/L Chloride 101 (98-107) mmol/L Carbon Dioxide 27 (22-30) mmol/L Anion Gap 12.0 (5-15) MEQ/L BUN 16 (7-17) mg/dL Creatinine 0.68 (0.52-1.04) mg/dL Estimated GFR > 60.0 ML/MIN Glucose 260 H (74-106) mg/dL Calcium 9.3 (8.4-10.2) mg/dL Magnesium 1.6 (1.6-2.3) mg/dL Total Bilirubin 0.60 (0.2-1.3) mg/dL AST 27 (14-36) U/L ALT 21 (0-35) U/L Alkaline Phosphatase 146 H (38-126) U/L Troponin I 0.051 H* (0.000-0.034) ng/mL NT-Pro-B Natriuret Pep 845 (0-1800) pg/mL Serum Total Protein 7.0 (6.3-8.2) g/dL Albumin 3.7 (3.5-5.0) g/dL - Progress Progress: improved Progress Note: Case discussed with Dr. Ames who agrees to consultation to transfer to either [facility] or [facility]. Patient request transfer to [facility] for further evaluation and treatment. Patient is experiencing an NSTEMI. Nitroglycerin and heparin ordered. Patient took aspirin today. 07/05/21 16:[address] Bull ER physician at [facility] who accepts transfer. CT head shows senile brain. No acute intracranial process observed. Plan of care discussed with patient. Patient agrees to transfer to [facility] for further evaluation and treatment. Dictation disclaimer. 07/05/21 17:01 Discussed with : Other Counseled pt/family regarding: lab results, diagnosis, rad results - Departure Departure Disposition: Transfer Clinical Impression: NSTEMI (non-ST elevated myocardial infarction), Dizziness, Hyperglycemia Condition: Stable Critical Care Time: No Referrals: THERESA BEAUCHAMP MD [Primary Care Provider] - Follow up/PCP as directed
[2021-07-05 15:28] LABS: Absolute Neutrophil Ct (ANC) 5.52 x10^3/uL (1.4-6.9); Basophil (Absolute #) 0.03 x10^3/uL (0-0.4); Eosinophil % 2.3 % (0.00-5.0); Eosinophil (Absolute #) 0.21 x10^3/uL (0-0.5); Hemoglobin 14.2 g/dL (12.0-16.0); Lymphocyte (Absolute #) 2.34 x10^3/uL (1.0-4.6); Lymphocytes % 26.1 % (24.0-44.0); Mean Cell Volume 86.6 fL (78-100); Mean Corpuscular Hemoglobin 29.3 pg (26-32); Mean Corpuscular Hgb Concent. 33.8 g/dL (32-36); Mean Platelet Volume 9.2 fL (7.5-11.0); Monocyte (Absolute #) 0.82 x10^3/uL (0.0-1.3); Monocytes % 9.1 % (0.0-12.0); Neutrophil % 61.5 % (36.0-66.0); Platelet Count 234 x10^3/uL (150-450); Red Blood Count 4.85 x10^6/uL (4.1-5.4); Red Cell Distribution Width 13.3 % (11.5-14.0)
[2021-07-05 15:56] LABS: ALBUMIN 3.7 g/dL (3.5-5.0); ALKALINE PHOSPHATASE 146 U/L (38-126); BLOOD UREA NITROGEN 16 mg/dL (7-17); CHLORIDE 101 mmol/L (98-107); Calcium 9.3 mg/dL (8.4-10.2); Carbon Dioxide 27 mmol/L (22-30); Creatinine 1 0.68 mg/dL (0.52-1.04); EST GLOMERULAR FILTRATION RATE > 60.0 ML/MIN; Glucose 260 mg/dL (74-106); MAGNESIUM 1.6 mg/dL (1.6-2.3); NT PRO BNP 845 pg/mL (0-1800); Potassium 3.9 mmol/L (3.5-5.1); SGOT/AST 27 U/L (14-36); SGPT/ALT 21 U/L (0-35); SODIUM 136 mmol/L (137-145)
--- NOTE | 2021-07-05 16:23 | XRAY ---
Indication: Pneumonia. Comparison: January 15, 2021. Portable chest is now clear. Heart not enlarged. Bony thorax intact again with mild osteopenia, degenerative changes, and left mastectomy surgical clips. Impression: Nonacute chest with chronic features.
--- NOTE | 2021-07-05 16:34 | XRAY ---
Indication: Vertigo. Multiple contiguous axial images obtained through the head without contrast. Comparison: None Age-appropriate global atrophy and minimal periventricular degenerative micro-ischemia bilaterally. No acute intracranial hemorrhage, abnormal extra-axial fluid collection, or mass effect. Fourth ventricle is midline without hydrocephalus. Torres-white matter differentiation preserved. Bony calvarium intact. Visualized paranasal sinuses and mastoid air cells are clear. Impression: Nonacute senile brain.
[2021-07-05] MEDS ORDERED: Ntg 0.2MG/Ml in D5W GLASS*** 250 ML IV PRN (16:40)
[2021-07-05] MEDS ORDERED: Heparin 5000 UNITS/0.5 ML (HIGH RISK MED) ONE (16:46)
[2021-07-05] MEDS ORDERED: Heparin 25,000 units/D5W 250ML PREMIX 25,000 UNITS/250 ML BAG IV ONE (16:47)
[2021-07-05 17:02] VITALS: BP 144/72; PULSE 79; O2SAT 98
[2021-07-05 17:36] LABS: Appearance CLEAR (CLEAR); Bilirubin NEGATIVE (NEGATIVE); Dipstick done @ ? MAIN LAB; Glucose 250 mg/dL (NEGATIVE); Ketones NEGATIVE (NEGATIVE); Nitrite NEGATIVE (NEGATIVE); Protein,Urine Dip NEGATIVE (Negative); RBC NEGATIVE Ery/ul (0-5); Urobilinogen 0.2 mg/dL (0-1)
[2021-07-05 17:38] LABS: Urine Cultured Indicated? NO
== END 2021-07-05 17:33 | disposition short-term general hospital (02) ==
LOC: ED 14:59
DX: I21.4 Non-ST elevation (NSTEMI) myocardial infarction (principal); R42 Dizziness and giddiness; E11.65 Type 2 diabetes mellitus with hyperglycemia; H53.8 Other visual disturbances; E78.5 Hyperlipidemia, unspecified; Z79.4 Long term (current) use of insulin; Z79.899 Other long term (current) drug therapy
CPT/HCPCS: 36000; 36415; 70450; 71045; 80053; 81015; 83735; 83880; 84484; 85025; 93005; 93041; 94760; 99285; J1644

== ENCOUNTER 2021-10-30 14:53 | Emergency (ER) | payer MEDICARE ==
--- NOTE | 2021-10-30 17:23 | ERPHSYRPT ---
- History of Present Illness Time Seen by Provider: 10/30/21 15:08 Source: patient Exam Limitations: no limitations Patient Subjective Stated Complaint: R leg pain Triage Nursing Assessment: pt to ED c/o R lower leg pain onset Sunday after cardiac rehab. pt has been working in cardiac rehab since early August 3 times per week. "When I left I just knew something was wrong with my leg, but I thought I just tweaked it but its not feeling better." rates 2/10 that increases to 10/10 on its own. dariusz wrap to R calf and tylenol have helped relieve pain at home. no redness or swelling noted in calf. Physician History: 76 years old female with recent CABG almost 2 months ago going through cardiac rehab was working on the bike and started to have some pain in the right calf for the last 5 days, off and on, more with activity and better with resting. No fall or trauma reported. Dull aching pain. Method of Injury: unknown Occurred: days ago (5) Quality: dullness Severity of Pain-Max: moderate Severity of Pain-Current: mild Lower Extremities Pain: leg: right Modifying Factors: Worsens With: movement Associated Symptoms: none Allergies/Adverse Reactions: vancomycin Allergy (Intermediate, Verified 07/05/21 15:11) Swelling fentanyl Allergy (Unknown, Verified 01/16/21 00:00) glycopyrrolate [From Robinul] Allergy (Unknown, Verified 01/16/21 00:00) propofol Allergy (Unknown, Verified 01/16/21 00:00) rocuronium bromide [From Zemuron] Allergy (Unknown, Verified 01/16/21 00:00) Antihistamines - Alkylamine Adverse Reaction (Unknown, Verified 01/16/21 00:00) metoprolol Adverse Reaction (Unknown, Verified 01/16/21 00:00) Home Medications: Insulin Glargine,Hum.rec.anlog [Lantus] 30 unit SQ BID 10/16/13 [History] Insulin Lispro [Humalog] 20 unit SQ BID 10/16/13 [History] Furosemide [Lasix] 40 mg PO DAILY 01/16/21 [History] Magnesium Oxide 400 mg PO BID 07/05/21 [History] Aspirin EC 81 mg [Ecotrin 81 mg] 81 mg PO DAILY 10/30/21 [History] Atorvastatin Calcium [Lipitor] 80 mg PO DAILY 10/30/21 [History] Clopidogrel Bisulfate [Clopidogrel] 75 mg PO DAILY 10/30/21 [History] Isosorbide Mononitrate [Isosorbide Mononitrate ER] 30 mg PO DAILY 10/30/21 [History] Metoprolol Tartrate 50 mg [Lopressor 50 MG] 50 mg PO BID 10/30/21 [History] Hx Tetanus, Diphtheria Vaccination/Date Given: No Hx Influenza Vaccination/Date Given: No Hx Pneumococcal Vaccination/Date Given: No Immunizations Up to Date: No Travel Risk - International Travel Have you traveled outside of the country in past 3 weeks: No - Coronavirus Screening Are you exhibiting any of the following symptoms?: No Close contact with a COVID-19 positive Pt in past 14-21 Days: No - Vaccine Status Have you recieved a Covid-19 vaccination: No - Review of Systems Constitutional: No Symptoms Ears, Nose, & Throat: No Symptoms Respiratory: No Symptoms Cardiac: No Symptoms Abdominal/Gastrointestinal: No Symptoms Genitourinary Symptoms: No Symptoms Musculoskeletal: Myalgias Skin: No Symptoms Neurological: No Symptoms Endocrine: No Symptoms - Past Medical History Pertinent Past Medical History: Yes Neurological History: No Pertinent History ENT History: Cataracts Cardiac History: High Cholesterol, Other Respiratory History: No Pertinent History Endocrine Medical History: Diabetes Type II Musculoskeletal History: Arthritis GI Medical History: No Pertinent History History: No Pertinent History Psycho-Social History: No Pertinent History Female Reproductive Disorders: Breast Cancer Other Medical History: breast cax2 - Past Surgical History Past Surgical History: Yes Cardiac: CABG Respiratory: No Pertinent History Gastrointestinal: Cholecystectomy Genitourinary: No Pertinent History Musculoskeletal: No Pertinent History Female Surgical History: Hysterectomy, Mastectomy Other Surgical History: surgical hx obtained from chart - Social History Smoking Status: Never smoker Exposure to second hand smoke: No Drug Use: none Patient Lives Alone: No - Nursing Vital Signs Nursing Vital Signs: Initial Vital Signs Temperature 97.0 F 10/30/21 14:59 Pulse Rate 78 10/30/21 14:59 Respiratory Rate 20 10/30/21 14:59 Blood Pressure 153/68 10/30/21 14:59 O2 Sat by Pulse Oximetry 96 10/30/21 14:59 Pain Scale Pain Intensity 10 - Physical Exam General Appearance: no apparent distress, alert Eyes, Ears, Nose, Throat Exam: normal ENT inspection Neck Exam: normal inspection, full range of motion Cardiovascular/Respiratory Exam: normal breath sounds, regular rate/rhythm Back Exam: normal inspection Legs Exam: right leg: pain, soft tissue tenderness, left leg: non-tender, bilateral leg: normal inspection, normal range of motion, no evidence of injury Neuro/Tendon Exam: normal sensation, normal motor functions, normal tendon functions Mental Status Exam: alert, oriented x 3, cooperative Skin Exam: normal color SpO2 Interpretation: normal SpO2: 96 O2 Delivery: Room Air Ordered Tests: Active Orders 24 hr Category Date Time Status VENOUS UNILAT/LIMITED EXTREMIT [US] Stat Exams 10/30/21 17:02 Ordered D-DIMER QUANTITATIVE Stat Lab 10/30/21 15:45 Completed Lab/Rad Data: Laboratory Results 10/30/21 Range/Units 15:45 D-Dimer 0.85 H* (0.0-0.50) mg/L - Progress Progress: improved, pain not gone completely Progress Note: 10/30/21 18:39 Does not have bony tenderness. Ruled out DVT. This probably is muscular strain, recommended supportive care. No signs of cellulitis or infection. Stable for discharge. Counseled pt/family regarding: lab results, diagnosis, rad results - Departure Departure Disposition: Home Clinical Impression: Leg pain Condition: Stable Critical Care Time: No Referrals: THERESA BEAUCHAMP MD [Primary Care Provider] - Follow Up with PCP/3 days Instructions: Muscle Strain Additional Instructions: Take Tylenol as needed. Follow-up with primary care for reevaluation. Return to ER for any worsening.
[2021-10-30 18:56] VITALS: BP 112/87; PULSE 88
[2021-10-30 19:03] VITALS: O2SAT 96
--- NOTE | 2021-10-31 08:41 | XRAY ---
Indication: Right leg pain. Two-dimensional sonogram and color Doppler imaging of the major venous vessels of the right leg performed. Comparison: None No thrombus seen in the examined deep venous vessels of the right leg including greater saphenous vein. Veins demonstrate normal compressibility. Venous waveforms are normal with and without augmentation. Impression: Right leg negative for DVT. Comment: Preliminary report given.
== END 2021-10-30 18:57 | disposition home or self-care (01) ==
LOC: ED 14:53
DX: M79.661 Pain in right lower leg (principal); E78.5 Hyperlipidemia, unspecified; E11.9 Type 2 diabetes mellitus without complications; Z79.02 Long term (current) use of antithrombotics/antiplatelets; Z79.4 Long term (current) use of insulin; Z79.899 Other long term (current) drug therapy; Z28.310 Unvaccinated for COVID-19
CPT/HCPCS: 36415; 85379; 93971; 99282

== ENCOUNTER 2022-04-07 03:02 | Emergency (ER) | payer MEDICARE ==
--- NOTE | 2022-04-07 03:18 | ERPHSYRPT ---
- History of Present Illness Time Seen by Provider: 04/07/22 03:05 Source: patient, family Exam Limitations: no limitations Physician History: This is a 76-year-old white female patient of Dr. Beauchamp who complains of right lower leg pain from the right knee distal to the right ankle. There was no traumatic injury. Patient had this in the distant past after a CABG procedure and she was doing physical therapy I am her pain was significant at that time. However, this pain came on during sleep and has not let up despite taking what she thought was a Bellerose at home. She has not been doing any exercising or increase in her activity. Patient is an insulin-dependent diabetic, has hypertension, she has hyperlipidemia and patient is taking Plavix. Patient has no shortness of breath and she denies chest pain Method of Injury: other (No injury) Occurred: this morning Quality: aching Severity of Pain-Max: mild (To moderate) Severity of Pain-Current: mild (To moderate) Lower Extremities Pain: leg: right (Pain is circumferential) Modifying Factors: Improves With: movement Associated Symptoms: other (Patient is able to) Allergies/Adverse Reactions: vancomycin Allergy (Intermediate, Verified 07/05/21 15:11) Swelling fentanyl Allergy (Unknown, Verified 01/16/21 00:00) glycopyrrolate [From Robinul] Allergy (Unknown, Verified 01/16/21 00:00) propofol Allergy (Unknown, Verified 01/16/21 00:00) rocuronium bromide [From Zemuron] Allergy (Unknown, Verified 01/16/21 00:00) Antihistamines - Alkylamine Adverse Reaction (Unknown, Verified 01/16/21 00:00) metoprolol Adverse Reaction (Unknown, Verified 01/16/21 00:00) Home Medications: Insulin Glargine,Hum.rec.anlog [Lantus] 30 unit SQ BID 10/16/13 [History] Insulin Lispro [Humalog] 20 unit SQ BID 10/16/13 [History] Furosemide [Lasix] 40 mg PO DAILY 01/16/21 [History] Magnesium Oxide 400 mg PO BID 07/05/21 [History] Aspirin EC 81 mg [Ecotrin 81 mg] 81 mg PO DAILY 10/30/21 [History] Atorvastatin Calcium [Lipitor] 80 mg PO DAILY 10/30/21 [History] Clopidogrel Bisulfate [Clopidogrel] 75 mg PO DAILY 10/30/21 [History] Isosorbide Mononitrate [Isosorbide Mononitrate ER] 30 mg PO DAILY 10/30/21 [History] Metoprolol Tartrate 50 mg [Lopressor 50 MG] 50 mg PO BID 10/30/21 [History] Hx Tetanus, Diphtheria Vaccination/Date Given: No Hx Influenza Vaccination/Date Given: No Hx Pneumococcal Vaccination/Date Given: No Travel Risk - International Travel Have you traveled outside of the country in past 3 weeks: No - Coronavirus Screening Are you exhibiting any of the following symptoms?: No Close contact with a COVID-19 positive Pt in past 14-21 Days: No - Vaccine Status Have you recieved a Covid-19 vaccination: No - Review of Systems Constitutional: No Symptoms Eyes: No Symptoms Ears, Nose, & Throat: No Symptoms Respiratory: No Symptoms Cardiac: No Symptoms Abdominal/Gastrointestinal: No Symptoms Genitourinary Symptoms: No Symptoms Musculoskeletal: Myalgias (Right lower extremity below the knee to the ankle) Skin: No Symptoms Neurological: No Symptoms Psychological: No Symptoms Endocrine: No Symptoms Hematologic/Lymphatic: No Symptoms Immunological/Allergic: No Symptoms All Other Systems: Reviewed and Negative - Past Medical History Pertinent Past Medical History: Yes Neurological History: No Pertinent History ENT History: Cataracts Cardiac History: High Cholesterol, Other Respiratory History: No Pertinent History Endocrine Medical History: Diabetes Type II Musculoskeletal History: Arthritis GI Medical History: No Pertinent History History: No Pertinent History Psycho-Social History: No Pertinent History Female Reproductive Disorders: Breast Cancer Other Medical History: breast cax2 - Past Surgical History Past Surgical History: Yes Cardiac: CABG Respiratory: No Pertinent History Gastrointestinal: Cholecystectomy Genitourinary: No Pertinent History Musculoskeletal: No Pertinent History Female Surgical History: Hysterectomy, Mastectomy Other Surgical History: surgical hx obtained from chart - Social History Smoking Status: Never smoker Exposure to second hand smoke: No Drug Use: none Patient Lives Alone: No - Physical Exam General Appearance: no apparent distress, alert, anxiety Eyes, Ears, Nose, Throat Exam: normal ENT inspection, moist mucous membranes Neck Exam: normal inspection, non-tender, supple, full range of motion Cardiovascular/Respiratory Exam: chest non-tender, no respiratory distress Gastrointestinal/Abdominal Exam: non-tender Back Exam: normal inspection, normal range of motion, No CVA tenderness, No vertebral tenderness Hips Exam: bilateral: non-tender, normal inspection, normal range of motion, no evidence of injury Legs Exam: right leg: soft tissue tenderness (Eventually right lower leg from the knee to the ankle), left leg: non-tender, bilateral leg: normal inspection, normal range of motion, no evidence of injury Knees Exam: left knee: non-tender, bilateral knee: normal inspection, normal range of motion, no evidence of injury Ankle Exam: bilateral ankle: non-tender, normal inspection, normal range of motion, no evidence of injury Foot Exam: bilateral foot: non-tender, normal inspection, normal range of motion, no evidence of injury Neuro/Tendon Exam: normal sensation, normal motor functions, normal tendon functions, responds to pain, no evidence tendon injury Mental Status Exam: alert, oriented x 3, cooperative Skin Exam: normal color, warm, dry SpO2 Interpretation: normal O2 Delivery: Room Air - Course Nursing assessment & vital signs reviewed: Yes - Progress Progress: pain not gone completely Progress Note: 04/07/22 03:17 Patient and family members just notified us that she thought she took a Bellerose at home and in fact it turns out she took his acyclovir instead of her pain medicine. 04/07/22 03:32 X-ray of right knee shows no acute fracture or dislocation. X-ray interpreted by me X-ray of right lower leg/tib-fib shows no acute fracture or dislocation. X-ray interpreted by me This patient has a medical issue which is of low to moderate complexity. This is based on the work-up that was performed and the results reviewed and interpreted by me. Based on the patient's complaint, history of present illness and physical exam findings and after reviewing the patient's medical history, medical allergy list I opted to perform a D-dimer and obtain x-rays of the right knee and right lower leg. I reviewed the results of the work-up and the larissa ent appears to have muscular, skeletal type pain. I do not believe she has a DVT. The patient is on Plavix and has been on Plavix for quite some time. There is no evidence of acute fracture or dislocation. We will provide the patient with Bellerose 5/325, 2 tablets, to take home. Patient is to take 1/2 tablet orally every 6-8 hours if needed for pain control. She is also to contact Dr. Beauchamp's office after 9:00 this morning to obtain a follow-up appointment and to manage the patient's pain. Counseled pt/family regarding: lab results, diagnosis, need for follow-up, rad results Medical Desision Making - Independent Historian Additional History obtained from: Child - Discussion of managment Reviewed:: Test results Agreed on:: Treatment plan, need for follow-up - Diagnostic Testing Diagnostic test were ordered, analyzed, and reviewed by me: Yes Radiological Interpretation: Interpreted by me - Risk of complications Low Risk: Low risk of morbidity from additional dx testing or treatment The pt has a mod risk of morbidity or mortality based on: Need for prescription drug management - Departure Departure Disposition: Home Clinical Impression: Pain in right lower leg Condition: Stable Critical Care Time: No Referrals: THERESA BEAUCHAMP MD [Primary Care Provider] - Follow up/PCP as directed Additional Instructions: Take the Bellerose 5/325 pain medicine as prescribed. If you do not wish to take the Bellerose 5/325 pain medicine, may use plain regular strength Tylenol 1 to 2 tablets every 4-6 hours for pain control. Call your primary care physician's office after 9:00 this morning to make arrangements for a follow-up appointment and further management of your leg pain. Continue your other medication as prescribed.
[2022-04-07] MEDS ORDERED: NORCO 5/325 MG PO ONE (03:38)
[2022-04-07] MEDS ORDERED: NORCO 5/325 MG ONE (03:42)
[2022-04-07 03:45] VITALS: BP 160/93
[2022-04-07 03:55] VITALS: PULSE 83; O2SAT 98
--- NOTE | 2022-04-07 08:54 | XRAY ---
Indication: Pain. No known injury. Comparison: None 3 view right knee demonstrates osteopenia, minimal/mild tricompartmental degenerative changes, diffuse vascular calcifications, and small posterior fabella. No other bony, articular, or soft tissue abnormalities.
--- NOTE | 2022-04-07 08:54 | XRAY ---
Indication: Pain. No known injury. Comparison: None 2 view right lower leg demonstrates osteopenia and diffuse vascular calcifications. No other bony, articular, or soft tissue abnormalities.
== END 2022-04-07 03:55 | disposition home or self-care (01) ==
LOC: ED 03:02
DX: M79.661 Pain in right lower leg (principal); E11.9 Type 2 diabetes mellitus without complications; I10 Essential (primary) hypertension; E78.5 Hyperlipidemia, unspecified; Z79.02 Long term (current) use of antithrombotics/antiplatelets; Z79.891 Long term (current) use of opiate analgesic; Z79.4 Long term (current) use of insulin; Z79.899 Other long term (current) drug therapy; Z28.310 Unvaccinated for COVID-19
CPT/HCPCS: 36415; 73562; 73590; 85379; 99283; A9270-GY

== ENCOUNTER 2023-01-20 13:56 | Emergency (ER) | payer MEDICARE ==
[2023-01-20 14:58] VITALS: RESP 18; TEMP 97.7
[2023-01-20 15:21] LABS: Absolute Neutrophil Ct (ANC) 6.24 x10^3/uL (1.4-6.9); BASOPHIL % 0.2 % (0.0-0.4); Basophil (Absolute #) 0.02 x10^3/uL (0-0.4); Eosinophil % 0.9 % (0.00-5.0); Eosinophil (Absolute #) 0.08 x10^3/uL (0-0.5); Hematocrit 42.2 % (35-47); Hemoglobin 14.4 g/dL (12.0-16.0); IMMATURE GRAN # 0.04 x10^3u/L (0.00-0.03); IMMATURE GRAN % 0.5 % (0.00-0.4); Lymphocyte (Absolute #) 1.85 x10^3/uL (1.0-4.6); Mean Cell Volume 86.1 fL (78-100); Mean Corpuscular Hemoglobin 29.4 pg (26-32); Mean Corpuscular Hgb Concent. 34.1 g/dL (32-36); Mean Platelet Volume 10.3 fL (7.5-11.0); Monocytes % 6.8 % (0.0-12.0); Neutrophil % 70.6 % (36.0-66.0); Platelet Count 204 x10^3/uL (150-450); Red Cell Distribution Width 12.3 % (11.5-14.0); White Blood Count 8.8 x10^3/uL (4.0-10.5)
[2023-01-20 15:35] LABS: ALBUMIN 3.7 g/dL (3.5-5.0); ANION GAP 15.5 MEQ/L (5-15); Calcium 9.2 mg/dL (8.4-10.2); Creatinine 1 0.82 mg/dL (0.52-1.04); EST GLOMERULAR FILTRATION RATE 73.6 ML/MIN; Potassium 4.3 mmol/L (3.5-5.1)
--- NOTE | 2023-01-20 15:54 | ERPHSYRPT ---
- History of Present Illness Time Seen by Provider: 01/20/23 15:52 Source: patient Patient Subjective Stated Complaint: here for high blood sugar for a couple days, Triage Nursing Assessment: pt alert, resp easy, skin w/d/p.abd soft. slight edema to lower legs Physician History: He denies any headache patient is 77-year-old female with significant past medical history of hypertension diabetes. Recently her blood sugar has been started running high in the range of 300-400. She denies any fever chills nausea vomiting diarrhea constipation. She also denies any chest pain or dizziness. Fever or chills. Timing/Duration: day(s) (2-3 days), improved Severity of Pain-Max: none Severity of Pain-Current: none Modifying Factors: Improves With: nothing Nitro Today/Relief: no nitro taken today Aspirin Treatment Today: no aspirin today Associated Symptoms: denies symptoms Allergies/Adverse Reactions: vancomycin Allergy (Intermediate, Verified 01/20/23 14:55) Swelling fentanyl Allergy (Unknown, Verified 01/20/23 14:55) glycopyrrolate [From Robinul] Allergy (Unknown, Verified 01/20/23 14:55) propofol Allergy (Unknown, Verified 01/20/23 14:56) has had since had reaction rocuronium bromide [From Zemuron] Allergy (Unknown, Verified 01/20/23 14:55) Antihistamines - Alkylamine Adverse Reaction (Unknown, Verified 01/20/23 14:55) metoprolol Adverse Reaction (Unknown, Verified 01/20/23 14:55) Home Medications: Insulin Glargine,Hum.rec.anlog [Lantus] 30 unit SQ BID 10/16/13 [History] Insulin Lispro [Humalog] 20 unit SQ BID 10/16/13 [History] Furosemide [Lasix] 40 mg PO DAILY 01/16/21 [History] Magnesium Oxide 400 mg PO BID 07/05/21 [History] Aspirin EC 81 mg [Ecotrin 81 mg] 81 mg PO DAILY 10/30/21 [History] Atorvastatin Calcium [Lipitor] 80 mg PO DAILY 10/30/21 [History] Clopidogrel Bisulfate [Clopidogrel] 75 mg PO DAILY 10/30/21 [History] Isosorbide Mononitrate [Isosorbide Mononitrate ER] 30 mg PO DAILY 10/30/21 [History] Metoprolol Tartrate 50 mg [Lopressor 50 MG] 50 mg PO BID 10/30/21 [History] Hx Tetanus, Diphtheria Vaccination/Date Given: No Hx Influenza Vaccination/Date Given: No Hx Pneumococcal Vaccination/Date Given: Yes Travel Risk - International Travel Have you traveled outside of the country in past 3 weeks: No - Coronavirus Screening Are you exhibiting any of the following symptoms?: No Close contact with a COVID-19 positive Pt in past 14-21 Days: No - Vaccine Status Have you recieved a Covid-19 vaccination: No - Review of Systems Constitutional: No Fever, No Chills Eyes: No Symptoms Ears, Nose, & Throat: No Symptoms Respiratory: No Cough, No Dyspnea Cardiac: No Chest Pain, No Edema, No Syncope Abdominal/Gastrointestinal: No Abdominal Pain, No Nausea, No Vomiting, No Diarrhea Genitourinary Symptoms: No Dysuria Musculoskeletal: No Back Pain, No Neck Pain Skin: No Rash Neurological: No Dizziness, No Focal Weakness, No Sensory Changes Psychological: No Symptoms Endocrine: No Symptoms All Other Systems: Reviewed and Negative - Past Medical History Pertinent Past Medical History: Yes Neurological History: No Pertinent History ENT History: Cataracts Cardiac History: High Cholesterol, Other Respiratory History: No Pertinent History Endocrine Medical History: Diabetes Type II Musculoskeletal History: Arthritis GI Medical History: No Pertinent History History: No Pertinent History Psycho-Social History: No Pertinent History Female Reproductive Disorders: Breast Cancer Other Medical History: breast cax2 - Past Surgical History Past Surgical History: Yes Cardiac: CABG Respiratory: No Pertinent History Gastrointestinal: Cholecystectomy Genitourinary: No Pertinent History Musculoskeletal: No Pertinent History Female Surgical History: Hysterectomy, Mastectomy Other Surgical History: surgical hx obtained from chart - Social History Smoking Status: Never smoker Exposure to second hand smoke: No Drug Use: none Patient Lives Alone: No - Nursing Vital Signs Nursing Vital Signs: Initial Vital Signs Temperature 97.7 F 01/20/23 14:57 Pulse Rate 88 01/20/23 14:57 Respiratory Rate 18 01/20/23 14:57 Blood Pressure 121/88 01/20/23 14:57 O2 Sat by Pulse Oximetry 97 01/20/23 14:57 Pain Scale Pain Intensity 4 - Physical Exam General Appearance: no apparent distress, alert Eye Exam: PERRL/EOMI, eyes nml inspection Ears, Nose, Throat Exam: normal ENT inspection, moist mucous membranes Neck Exam: normal inspection, non-tender, supple Respiratory Exam: normal breath sounds, lungs clear, No respiratory distress Cardiovascular Exam: regular rate/rhythm, normal heart sounds, No edema Gastrointestinal/Abdomen Exam: soft, No tenderness, No mass Back Exam: normal inspection, No CVA tenderness, No vertebral tenderness Extremity Exam: normal inspection, normal range of motion Neurologic Exam: alert, oriented x 3, cooperative, normal mood/affect, nml cerebellar function, sensation nml, No motor deficits Skin Exam: normal color, warm, dry Lymphatic Exam: No adenopathy SpO2: 94 - Course Nursing assessment & vital signs reviewed: Yes Ordered Tests: Active Orders 24 hr Category Date Time Status CBC W DIFF Stat Lab 01/20/23 15:10 Completed CMP Stat Lab 01/20/23 15:10 Completed MAGNESIUM Stat Lab 01/20/23 15:10 Completed POCT GLUCOSE Stat Lab 01/20/23 15:28 Completed POCT GLUCOSE Stat Lab 01/20/23 16:39 Completed UA W/RFX UR CULTURE Stat Lab 01/20/23 16:06 Completed Medication Summary Discontinued Medications Generic Name Dose Route Start Last Admin Trade Name Shaunq PRN Reason Stop Dose Admin Sodium Chloride 1,000 mls @ 999 mls/hr 01/20/23 15:58 01/20/23 17:10 Sodium Chloride 0.9% 1000 Ml IV 01/20/23 16:58 Infused .Q1H1M STA Infusion Sodium Chloride Confirm 01/20/23 16:00 Sodium Chloride 0.9% 1000 Ml Administered 01/20/23 16:01 Dose 1,000 mls @ ud .ROUTE .STK-MED ONE Ceftriaxone Sodium/Dextrose 1 g in 50 mls @ 100 mls/hr 01/20/23 16:58 01/20 17:09 Rocephin 1 Gm-D5w 50 Ml Bag IV 01/20/23 17:27 100 ml/hr STAT STA 100 mls/hr Administration Ceftriaxone Sodium/Dextrose Confirm 01/20/23 17:07 Rocephin 1 Gm-D5w 50 Ml Bag Administered 01/20/23 17:08 Dose 1 g in 50 mls @ ud IV .STK-MED ONE Insulin Human Regular 10 unit 01/20/23 16:27 01/20/23 16:46 Insulin Regular, Human 1 Unit IV 01/20/23 16:28 10 unit STAT ONE Administration Insulin Human Regular Confirm 01/20/23 16:42 Insulin Regular, Human 1 Unit Administered 01/20/23 16:43 Dose 10 unit .ROUTE .[facility]-MED ONE Lab/Rad Data: Laboratory Result Diagrams 01/20/23 15:10 01/20/23 15:10 Laboratory Results 01/20/23 01/20/23 01/20/23 Range/Units 16:39 16:06 15:28 WBC (4.0-10.5) x10^3/uL RBC (4.1-5.4) x10^6/uL Hgb (12.0-16.0) g/dL Hct (35-47) % MCV (78-100) fL MCH (26-32) pg MCHC (32-36) g/dL RDW (11.5-14.0) % Plt Count (150-450) x10^3/uL MPV (7.5-11.0) fL Gran % (36.0-66.0) % Immature Gran % (Auto) (0.00-0.4) % Nucleat RBC Rel Count (0.00-0.1) % Eos # (Auto) (0-0.5) x10^3/uL Immature Gran # (Auto) (0.00-0.03) x10^3u/L Absolute Lymphs (auto) (1.0-4.6) x10^3/uL Absolute Monos (auto) (0.0-1.3) x10^3/uL Absolute Nucleated RBC (0.00-0.01) x10^3u/L Lymphocytes % (24.0-44.0) % Monocytes % (0.0-12.0) % Eosinophils % (0.00-5.0) % Basophils % (0.0-0.4) % Absolute Granulocytes (1.4-6.9) x10^3/uL Basophils # (0-0.4) x10^3/uL Sodium (137-145) mmol/L Potassium (3.5-5.1) mmol/L Chloride (98-107) mmol/L Carbon Dioxide (22-30) mmol/L Anion Gap (5-15) MEQ/L BUN (7-17) mg/dL Creatinine (0.52-1.04) mg/dL Estimated GFR ML/MIN Glucose (74-106) mg/dL POC Glucometer 387 H 446 H (74 to 106) mg/dL Calcium (8.4-10.2) mg/dL Magnesium (1.6-2.3) mg/dL Total Bilirubin (0.2-1.3) mg/dL AST (14-36) U/L ALT (0-35) U/L Alkaline Phosphatase (38-126) U/L Serum Total Protein (6.3-8.2) g/dL Albumin (3.5-5.0) g/dL Urine Color Yellow (Yellow) Urine Appearance Clear (Clear) Urine pH 5.0 (4.6-8.0) Ur Specific [place] 1.020 (1.005-1.030) Urine Protein Negative (Negative) Urine Glucose (UA) >=1000 A (Negative) mg/dL Urine Ketones Negative (Negative) Urine Blood Negative (Negative) Urine Nitrite Negative (Negative) Urine Bilirubin Negative (Negative) Urine Urobilinogen 0.2 (0.2) mg/dL Ur Leukocyte Esterase Trace A (Negative) U Hyaline Cast (Auto) NONE SEEN (0-2) /LPF Urine Microscopic RBC 0-2 (0-5) /HPF Urine Microscopic WBC 6-10 A (0-5) /HPF Ur Epithelial Cells Rare (None Seen) /HPF Urine Bacteria None Seen (None Seen) /HPF Urine Culture Reflexed NO (NO) 01/20/23 01/20/23 Range/Units 15:10 15:10 WBC 8.8 (4.0-10.5) x10^3/uL RBC 4.90 (4.1-5.4) x10^6/uL Hgb 14.4 (12.0-16.0) g/dL Hct 42.2 (35-47) % MCV 86.1 (78-100) fL MCH 29.4 (26-32) pg MCHC 34.1 (32-36) g/dL RDW 12.3 (11.5-14.0) % Plt Count 204 (150-450) x10^3/uL MPV 10.3 (7.5-11.0) fL Gran % 70.6 H (36.0-66.0) % Immature Gran % (Auto) 0.5 H (0.00-0.4) % Nucleat RBC Rel Count 0.0 (0.00-0.1) % Eos # (Auto) 0.08 (0-0.5) x10^3/uL Immature Gran # (Auto) 0.04 H (0.00-0.03) x10^3u/L Absolute Lymphs (auto) 1.85 (1.0-4.6) x10^3/uL Absolute Monos (auto) 0.60 (0.0-1.3) x10^3/uL Absolute Nucleated RBC 0.00 (0.00-0.01) x10^3u/L Lymphocytes % 21.0 L (24.0-44.0) % Monocytes % 6.8 (0.0-12.0) % Eosinophils % 0.9 (0.00-5.0) % Basophils % 0.2 (0.0-0.4) % Absolute Granulocytes 6.24 (1.4-6.9) x10^3/uL Basophils # 0.02 (0-0.4) x10^3/uL Sodium 130 L (137-145) mmol/L Potassium 4.3 (3.5-5.1) mmol/L Chloride 96 L (98-107) mmol/L Carbon Dioxide 23 (22-30) mmol/L Anion Gap 15.5 H (5-15) MEQ/L BUN 18 H (7-17) mg/dL Creatinine 0.82 (0.52-1.04) mg/dL Estimated GFR 73.6 ML/MIN Glucose 490 H (74-106) mg/dL POC Glucometer (74 to 106) mg/dL Calcium 9.2 (8.4-10.2) mg/dL Magnesium 2.0 (1.6-2.3) mg/dL Total Bilirubin 1.00 (0.2-1.3) mg/dL AST 29 (14-36) U/L ALT 24 (0-35) U/L Alkaline Phosphatase 168 H (38-126) U/L Serum Total Protein 7.0 (6.3-8.2) g/dL Albumin 3.7 (3.5-5.0) g/dL Urine Color (Yellow) Urine Appearance (Clear) Urine pH (4.6-8.0) Ur Specific [place] (1.005-1.030) Urine Protein (Negative) Urine Glucose (UA) (Negative) mg/dL Urine Ketones (Negative) Urine Blood (Negative) Urine Nitrite (Negative) Urine Bilirubin (Negative) Urine Urobilinogen (0.2) mg/dL Ur Leukocyte Esterase (Negative) U Hyaline Cast (Auto) (0-2) /LPF Urine Microscopic RBC (0-5) /HPF Urine Microscopic WBC (0-5) /HPF Ur Epithelial Cells (None Seen) /HPF Urine Bacteria (None Seen) /HPF Urine Culture Reflexed (NO) - Progress Progress: improved Air Movement: good Blood Culture(s) Obtained: No Antibiotics given: Yes Counseled pt/family regarding: lab results, diagnosis, need for follow-up Medical Desision Making - Risk of complications Minimal Risk: Minimal risk of morbidity Low Risk: Low risk of morbidity from additional dx testing or treatment - Departure Departure Disposition: Home Clinical Impression: Hyperglycemia UTI (urinary tract infection) Qualifiers: Urinary tract infection type: site unspecified Hematuria presence: without hematuria Qualified Code(s): N39.0 - Urinary tract infection, site not specified Uncontrolled diabetes mellitus Qualifiers: Diabetes mellitus type: type 2 Glycemic state: with hyperglycemia Qualified Code(s): E11.65 - Type 2 diabetes mellitus with hyperglycemia Condition: Stable Critical Care Time: No Referrals: THERESA BEAUCHAMP MD [Primary Care Provider] - Follow up with PCP 5 days Instructions: High Blood Sugar, Adult (DC) Additional Instructions: Increase humolog to 50 units twice a day for 3 days. Follow up with your physician in 3 days Discharge/Care Plan STEPHEN WAYCHARLOTTE OROZCO was seen on 01/20/23 in the Emergency Room. The patient was counseled regarding Diagnosis,Lab results, Imaging studies, need for follow up and when to return to the Emergency Room. Prescriptions given: Discharge Note I have spoken with the patient and/or caregivers. I have explained the patient's condition, diagnosis and treatment plan based on the information available to me at this time. I have answered the patient's and/or caregiver's questions and addressed any concerns. The patient and/or caregivers have as good understanding of the patient's diagnosis, condition and treatment plan as can be expected at this point. The vital signs have been stable. The patient's condition is stable and appropriate for discharge from the emergency department. The patient will pursue further outpatient evaluation with the primary care physician or other designated or consulting physician as outlined in the discharge instructions. The patient and/or caregivers are agreeable to this plan of care and follow-up instructions have been explained in detail. The patient and/or caregivers have received these instruction. The patient/and or caregivers are aware that any significant change in condition or worsening of symptoms should prompt an immediate return to this or the closest emergency department or call 911. RAYNAGABRIELLA OROZCO was seen on 01/20/23 n the Emergency Room. At that time you were treated for an emergent condition, during your visit Laboratory, Radiology and/or other procedures may have been ordered. It is very important that you follow-up with your Primary Care Physician THERESA BEAUCHAMP within the next 24- 48 hours to review your Emergency Room visit and the final results of testing that was ordered. Some test results such as Urine Cultures, Blood Cultures, and other cultures if ordered will not be finalized for 24-48 hours. If you do not have a Primary Care Provider please call the medical records department at [phone] ext [phone] to obtain a copy of your results or you may sign into our patient portal to obtain these results by visiting us @ [email or web address] and completing the following steps: 1. Click on the Patient Portal link 2. Click the Patient Self Enrollment Link to complete the enrollment form and entering your 3. Once the enrollment form is completed you will receive an email with a temporary ID and password at the email address you provided. 4. Next choose a user name and password. Your user name must be at least 4 characters long and your password must be at least 4 characters long. 5. Choose a security question from the list and provide your answer to the question. If you already have signed into the Health Portal you may access your Health Care Information 04/09 by the following steps: 1. Login to our website @ [email or web address] 2. Enter your original user name and password. FAQS The [facility] Health Portal is an online tool that contains your Lab Results, Radiology Reports, Visit History, Discharge Instructions and Health Summary Lab and Radiology Results will not be available for 72 hours on the portal. The Portal is a secure site, passwords are encryted and URLs are re-written so they cannot be copied and pasted. You and authorized family members are the only ones who can access your Portal. Also there is a timeout feature that protects your information if you leave the Portal page open. If you have technical difficulty please use the Contact Us link on the page this will allow you to submit any questions you have regarding the Portal or you may contact the Medical Record Department at [phone] ext [phone]. Prescriptions: Smz/Tmp Ds Tablet [Bactrim Ds Tablet] 1 udtab PO BID #20 tablet
[2023-01-20] MEDS ORDERED: Sodium Chloride 0.9% 1000 ML 1,000 ML IV STA (15:58)
[2023-01-20] MEDS ORDERED: Sodium Chloride 0.9% 1000 ML 1,000 ML ONE (16:00)
[2023-01-20] MEDS ORDERED: HUMULIN R IV ONE (16:27)
[2023-01-20] MEDS ORDERED: HUMULIN R ONE (16:42)
[2023-01-20 16:55] LABS: Appearance Clear (Clear); Bacteria None Seen /HPF (None Seen); Bilirubin Negative (Negative); Blood Negative (Negative); Epithelial Cells Rare /HPF (None Seen); Glucose, Urine >=1000 mg/dL (Negative); Hyaline Casts NONE SEEN /LPF (0-2); Ketones Negative (Negative); Leukocyte Esterase Trace (Negative); Nitrite Negative (Negative); Protein,Urine Dip Negative (Negative); RBC 0-2 /HPF (0-5); Urobilinogen 0.2 mg/dL (0.2)
[2023-01-20 16:56] LABS: ADD URINE CULTURE? NO (NO)
[2023-01-20] MEDS ORDERED: ROCEPHIN 1 Gm-D5w 50 ml Bag** 1 G/50 ML IVPB IV STA (16:58)
[2023-01-20] MEDS ORDERED: ROCEPHIN 1 Gm-D5w 50 ml Bag** 1 G/50 ML IVPB IV ONE (17:07)
[2023-01-20 17:13] VITALS: BP 120/66; PULSE 85
[2023-01-20 17:20] VITALS: O2SAT 94
== END 2023-01-20 17:53 | disposition home or self-care (01) ==
LOC: ED 13:56
DX: E11.65 Type 2 diabetes mellitus with hyperglycemia (principal); N39.0 Urinary tract infection, site not specified; I10 Essential (primary) hypertension; E78.5 Hyperlipidemia, unspecified; Z79.4 Long term (current) use of insulin; Z79.02 Long term (current) use of antithrombotics/antiplatelets; Z79.899 Other long term (current) drug therapy; Z28.310 Unvaccinated for COVID-19
CPT/HCPCS: 36415; 80053; 81001; 82947; 83735; 85025; 96360; 96365; 96374; 99284; J0696; J1815